=== PATIENT | male | born 1960 | race Caucasian/White ===

== ENCOUNTER 2022-07-25 05:06 | Day surgery (SDC) | payer OTHER ==
[2022-07-21 17:08] VITALS: BMI 25.0
[2022-07-25] MEDS ORDERED: SODIUM CHLORIDE 500 ML IV SCH (11:15)
[2022-07-25] MEDS ORDERED: FENTANYL CITRATE/PF 50 MCG/ML VIAL ONE (11:20)
[2022-07-25] MEDS ORDERED: FENTANYL CITRATE/PF 50 MCG/ML VIAL IVPUSH ONE ×2 (11:28→11:47)
[2022-07-25 14:24] VITALS: RESP 18
[2022-07-25 14:27] VITALS: BP 108/60; PULSE 50; TEMP 97.6
== END 2022-07-25 14:00 | disposition home or self-care (01) ==
LOC: JRADIR 05:06
PROVIDERS: ATTEND Internal Medicine Hematology & Oncology
DX: Z51.11 Encounter for antineoplastic chemotherapy (principal); C20 Malignant neoplasm of rectum; C78.7 Secondary malignant neoplasm of liver and intrahepatic bile duct
CPT/HCPCS: 36415; 36561; 77001-TC-FY; 80048; 80076; 83615; 83735; 85025; 85610; 85730; 96366; 96367; 96375; 96411; 96413; 96415; C1788; G0498; J2469; J9263

== ENCOUNTER 2022-07-25 07:39 | Day surgery (SDC) | payer OTHER ==
[2022-07-25 08:36] LABS: BASO % 0.8 % (0-2.0); EOS % 3.9 % (0-4.5); HEMATOCRIT 41.4 % (35.4-49); HEMOGLOBIN 13.6 GM/dL (11.7-16.9); LYMPH % 16.2 % (8-40); MCH 29.8 pg (25.7-33.7); MCHC 32.9 g/dl (32.0-35.9); MEAN CELL VOLUME 90.7 fl (80-96); MONO % 10.3 % (3.8-10.2); NEUT % 68.8 % (42.8-82.8); PLATELET COUNT 302 10^3/uL (134-434); RBC 4.56 M/mm3 (4.00-5.60); RDW 14.8 % (11.9-15.9); WHITE BLOOD COUNT 7.9 K/mm3 (4.0-10.0)
[2022-07-25 08:40] LABS: INR 1.05 (0.83-1.09); PROTHROMBIN TIME (PATIENT) 12.2 SEC (9.7-13.0)
[2022-07-25 08:43] LABS: ACTIVATED PTT 28.6 SECONDS (25.2-36.5)
[2022-07-25 08:51] LABS: POTASSIUM 4.2 mmol/L (3.5-5.1)
[2022-07-25 08:53] LABS: CALCIUM 9.5 mg/dL (8.5-10.1)
[2022-07-25 08:54] LABS: ALBUMIN 3.9 g/dl (3.4-5.0); BLOOD UREA NITROGEN 11.2 mg/dL (7-18); MAGNESIUM 2.1 mg/dL (1.8-2.4)
[2022-07-25 08:56] LABS: BILIRUBIN,DIRECT 0.1 mg/dL (0.0-0.2)
[2022-07-25 08:57] LABS: CREATININE 0.7 mg/dL (0.55-1.3)
[2022-07-25 08:58] LABS: BILIRUBIN,TOTAL 0.3 mg/dL (0.2-1)
[2022-07-25] MEDS ORDERED: SODIUM CHLORIDE 250 ML IV ONE (09:30)
[2022-07-25] MEDS ORDERED: DEXAMETHASONE SODIUM PHOSPHATE 10 MG in SODIUM CHLORIDE 50 ML IVPB ONE (10:00)
[2022-07-25] MEDS ORDERED: PALONOSETRON HCL 0.25 MG/5 ML VIAL IVPUSH ONE (10:00)
[2022-07-25] MEDS ORDERED: DEXTROSE 5% IVPB ONE (10:30)
[2022-07-25] MEDS ORDERED: WATER IVPB ONE (10:30)
[2022-07-25] MEDS ORDERED: LEUCOVORIN CALCIUM IVPB ONE (10:30)
[2022-07-25] MEDS ORDERED: FLUOROURACIL 2,500 MG/50 ML VIAL IVPUSH ONE (12:30)
[2022-07-25] MEDS ORDERED: FLUOROURACIL 4,550 MG in SODIUM CHLORIDE 1 ML CP ONE (13:00)
[2022-07-25 18:46] VITALS: BP 125/64; PULSE 41; RESP 20; TEMP 98
[2022-07-25] MEDS ORDERED: PORTA CATH FLUSH 10 ML IVPUSH PRN (18:46)
== END 2022-07-25 18:05 | disposition home or self-care (01) ==
LOC: J7W 07:39 → JONCCHEMO 07:39
PROVIDERS: ATTEND Internal Medicine Hematology & Oncology
DX: Z51.11 Encounter for antineoplastic chemotherapy (principal); C20 Malignant neoplasm of rectum; C78.7 Secondary malignant neoplasm of liver and intrahepatic bile duct
CPT/HCPCS: 36415; 80048; 80076; 83615; 83735; 85025; 85610; 85730; 96366; 96367; 96375; 96411; 96413; 96415; G0498; J2469; J9263

== ENCOUNTER 2022-07-27 12:27 | Day surgery (SDC) | payer OTHER ==
[~2022-07-27 12:27] MED LIST: D5-NS + 20 MEQ KCL - 10 MEQ/500 ML INFUS.BAG IV ONE; MAGNESIUM 1GM/D5W - 1 GM/100 ML IVPB IVPB ONE
[2022-07-27 17:02] VITALS: RESP 18; TEMP 98.4
[2022-07-27 17:14] VITALS: BP 104/64; PULSE 45
[2022-07-27] MEDS ORDERED: PORTA CATH FLUSH 10 ML IVPUSH PRN (17:14)
== END 2022-07-27 15:30 | disposition home or self-care (01) ==
LOC: JONCCHEMO 12:27 → J7W 12:28 → JONCCHEMO 15:30
PROVIDERS: ATTEND Internal Medicine Hematology & Oncology
PROC: 3E043GC Introduction of Other Therapeutic Substance into Central Vein, Percutaneous Approach (ICD-10-PCS; principal; 2022-07-27)
DX: C20 Malignant neoplasm of rectum (principal); C78.7 Secondary malignant neoplasm of liver and intrahepatic bile duct; Z76.89 Persons encountering health services in other specified circumstances
CPT/HCPCS: 96361; 96365

== ENCOUNTER 2022-08-07 10:36 | Day surgery (SDC) | payer OTHER ==
[~2022-08-07 10:36] MED LIST changes: -D5-NS + 20 MEQ KCL - 10 MEQ/500 ML INFUS.BAG IV ONE; +DEXAMETHASONE SODIUM PHOSPHATE 10 MG in SODIUM CHLORIDE 50 ML IVPB ONE; +DEXTROSE 5% IVPB ONE; +LEUCOVORIN CALCIUM IVPB ONE; -MAGNESIUM 1GM/D5W - 1 GM/100 ML IVPB IVPB ONE; +PALONOSETRON HCL 0.25 MG/5 ML VIAL IVPUSH ONE; +SODIUM CHLORIDE 250 ML IV ONE; +WATER IVPB ONE
[2022-08-07 11:07] LABS: BASO % 0.5 % (0-2.0); EOS % 5.3 % (0-4.5); HEMATOCRIT 38.2 % (35.4-49); HEMOGLOBIN 12.5 GM/dL (11.7-16.9); LYMPH % 28.4 % (8-40); MCH 29.7 pg (25.7-33.7); MCHC 32.6 g/dl (32.0-35.9); MEAN CELL VOLUME 91.1 fl (80-96); MEAN PLT VOLUME 8.9 fl (7.5-11.1); MONO % 9.2 % (3.8-10.2); NEUT % 56.6 % (42.8-82.8); PLATELET COUNT 218 10^3/uL (134-434); RDW 14.2 % (11.9-15.9); WHITE BLOOD COUNT 5.3 K/mm3 (4.0-10.0)
[2022-08-07 11:28] LABS: POTASSIUM 4.1 mmol/L (3.5-5.1)
[2022-08-07 11:30] LABS: BLOOD UREA NITROGEN 10.2 mg/dL (7-18); CALCIUM 9.5 mg/dL (8.5-10.1)
[2022-08-07 11:31] LABS: MAGNESIUM 2.2 mg/dL (1.8-2.4)
[2022-08-07 11:33] LABS: BILIRUBIN,DIRECT 0.1 mg/dL (0.0-0.2)
[2022-08-07 11:34] LABS: CREATININE 0.7 mg/dL (0.55-1.3)
[2022-08-07 11:35] LABS: BILIRUBIN,TOTAL 0.3 mg/dL (0.2-1); TOT PROT 6.8 g/dl (6.4-8.2)
[2022-08-07] MEDS ORDERED: FLUOROURACIL 2,500 MG/50 ML VIAL IVPUSH ONE (12:00)
[2022-08-07] MEDS ORDERED: FLUOROURACIL 4,550 MG in SODIUM CHLORIDE 1 ML CP ONE (12:15)
[2022-08-07 17:16] VITALS: TEMP 97.7
[2022-08-07 17:31] VITALS: BP 138/72; PULSE 46; RESP 20
[2022-08-07] MEDS ORDERED: PORTA CATH FLUSH 10 ML IVPUSH PRN (17:32)
== END 2022-08-07 16:30 | disposition home or self-care (01) ==
LOC: J7W 10:36 → JONCCHEMO 10:36
PROVIDERS: ATTEND Internal Medicine Hematology & Oncology
DX: Z51.11 Encounter for antineoplastic chemotherapy (principal); C20 Malignant neoplasm of rectum; C78.7 Secondary malignant neoplasm of liver and intrahepatic bile duct
CPT/HCPCS: 36415; 80048; 80076; 83735; 85025; 96366; 96367; 96375; 96411; 96413; 96415; G0498; J2469; J9263

== ENCOUNTER 2022-08-09 12:57 | Day surgery (SDC) | payer OTHER ==
[~2022-08-09 12:57] MED LIST changes: +D5-NS + 40 MEQ KCL - 20 MEQ/500 ML INFUS.BAG IV ONE; -DEXAMETHASONE SODIUM PHOSPHATE 10 MG in SODIUM CHLORIDE 50 ML IVPB ONE; -DEXTROSE 5% IVPB ONE; -LEUCOVORIN CALCIUM IVPB ONE; +MAGNESIUM 1GM/D5W - 1 GM/100 ML IVPB IVPB ONE; -PALONOSETRON HCL 0.25 MG/5 ML VIAL IVPUSH ONE; -SODIUM CHLORIDE 250 ML IV ONE; -WATER IVPB ONE
[2022-08-09 18:17] VITALS: BP 88/70; PULSE 101; RESP 20; TEMP 98.2
[2022-08-09] MEDS ORDERED: PORTA CATH FLUSH 10 ML IVPUSH PRN (18:17)
== END 2022-08-09 16:00 | disposition home or self-care (01) ==
LOC: JONCNONCHE 12:57
PROVIDERS: ATTEND Internal Medicine Hematology & Oncology
PROC: 3E043GC Introduction of Other Therapeutic Substance into Central Vein, Percutaneous Approach (ICD-10-PCS; principal; 2022-08-09)
DX: C20 Malignant neoplasm of rectum (principal); C78.7 Secondary malignant neoplasm of liver and intrahepatic bile duct; Z76.89 Persons encountering health services in other specified circumstances
CPT/HCPCS: 96365; 96368

== ENCOUNTER 2022-09-05 08:57 | Day surgery (SDC) | payer OTHER ==
[2022-09-05 09:28] LABS: BASO % 0.9 % (0-2.0); EOS % 3.1 % (0-4.5); HEMATOCRIT 39.8 % (35.4-49); HEMOGLOBIN 13.2 GM/dL (11.7-16.9); LYMPH % 23.2 % (8-40); MCH 29.8 pg (25.7-33.7); MCHC 33.1 g/dl (32.0-35.9); MEAN PLT VOLUME 8.5 fl (7.5-11.1); MONO % 10.2 % (3.8-10.2); NEUT % 62.6 % (42.8-82.8); PLATELET COUNT 230 10^3/uL (134-434); RBC 4.42 M/mm3 (4.00-5.60); RDW 15.9 % (11.9-15.9); WHITE BLOOD COUNT 6.6 K/mm3 (4.0-10.0)
[2022-09-05] MEDS ORDERED: SODIUM CHLORIDE 250 ML IV ONE (09:30)
[2022-09-05 09:50] LABS: POTASSIUM 4.1 mmol/L (3.5-5.1)
[2022-09-05 09:52] LABS: CALCIUM 8.7 mg/dL (8.5-10.1)
[2022-09-05 09:53] LABS: ALBUMIN 3.7 g/dl (3.4-5.0); BLOOD UREA NITROGEN 12.3 mg/dL (7-18)
[2022-09-05 09:55] LABS: BILIRUBIN,DIRECT 0.1 mg/dL (0.0-0.2)
[2022-09-05 09:56] LABS: CREATININE 0.7 mg/dL (0.55-1.3)
[2022-09-05 09:57] LABS: BILIRUBIN,TOTAL 0.4 mg/dL (0.2-1); TOT PROT 6.8 g/dl (6.4-8.2)
[2022-09-05] MEDS ORDERED: PALONOSETRON HCL 0.25 MG/5 ML VIAL IVPUSH ONE (10:00)
[2022-09-05] MEDS ORDERED: DEXAMETHASONE SODIUM PHOSPHATE 10 MG in SODIUM CHLORIDE 50 ML IVPB ONE (10:00)
[2022-09-05] MEDS ORDERED: LEUCOVORIN CALCIUM IVPB ONE (10:30)
[2022-09-05] MEDS ORDERED: DEXTROSE 5% IVPB ONE (10:30)
[2022-09-05] MEDS ORDERED: WATER IVPB ONE (10:30)
[2022-09-05] MEDS ORDERED: FLUOROURACIL 2,500 MG/50 ML VIAL IVPUSH ONE (12:30)
[2022-09-05] MEDS ORDERED: SODIUM CHLORIDE CP ONE (12:45)
[2022-09-05] MEDS ORDERED: FLUOROURACIL CP ONE (12:45)
[2022-09-05 15:40] VITALS: BP 104/71; PULSE 46; RESP 20; TEMP 98
== END 2022-09-05 14:30 | disposition home or self-care (01) ==
LOC: JONCCHEMO 08:57 → J7W 08:59 → JONCCHEMO 14:30
PROVIDERS: ATTEND Internal Medicine Hematology & Oncology
DX: Z51.11 Encounter for antineoplastic chemotherapy (principal); C20 Malignant neoplasm of rectum; C78.7 Secondary malignant neoplasm of liver and intrahepatic bile duct
CPT/HCPCS: 36415; 80048; 80076; 83735; 85025; 96366; 96367; 96411; 96413; 96415; G0498; J2469; J9263

== ENCOUNTER 2022-09-07 13:49 | Day surgery (SDC) | payer OTHER ==
[~2022-09-07 13:49] MED LIST changes: +D5-NS + 20 MEQ KCL - 10 MEQ/500 ML INFUS.BAG IV ONE; -D5-NS + 40 MEQ KCL - 20 MEQ/500 ML INFUS.BAG IV ONE
[2022-09-07] MEDS ORDERED: DEXTROSE 5%-NORMAL SALINE 1,000 ML IV ONE (16:45)
[2022-09-07 17:39] VITALS: RESP 20; TEMP 98
[2022-09-07] MEDS ORDERED: PORTA CATH FLUSH 10 ML IVPUSH PRN (17:39)
[2022-09-07 17:43] VITALS: BP 95/61; PULSE 48
== END 2022-09-07 17:46 | disposition home or self-care (01) ==
LOC: JONCCHEMO 13:49 → J7W 13:50 → JONCCHEMO 17:46
PROVIDERS: ATTEND Internal Medicine Hematology & Oncology
PROC: 3E043GC Introduction of Other Therapeutic Substance into Central Vein, Percutaneous Approach (ICD-10-PCS; principal; 2022-09-07)
DX: C20 Malignant neoplasm of rectum (principal); C78.7 Secondary malignant neoplasm of liver and intrahepatic bile duct; Z76.89 Persons encountering health services in other specified circumstances
CPT/HCPCS: 96361; 96365

== ENCOUNTER 2022-09-19 09:09 | Day surgery (SDC) | payer OTHER ==
[2022-09-19] MEDS ORDERED: SODIUM CHLORIDE 250 ML IV ONE (09:30)
[2022-09-19] MEDS ORDERED: DEXAMETHASONE SODIUM PHOSPHATE 10 MG in SODIUM CHLORIDE 50 ML IVPB ONE (10:00)
[2022-09-19] MEDS ORDERED: PALONOSETRON HCL 0.25 MG/5 ML VIAL IVPUSH ONE (10:00)
[2022-09-19] MEDS ORDERED: WATER IVPB ONE (10:30)
[2022-09-19] MEDS ORDERED: LEUCOVORIN CALCIUM IVPB ONE (10:30)
[2022-09-19] MEDS ORDERED: DEXTROSE 5% IVPB ONE (10:30)
[2022-09-19 10:44] LABS: BASO % 0.7 % (0-2.0); EOS % 3.8 % (0-4.5); HEMATOCRIT 39.2 % (35.4-49); HEMOGLOBIN 13.3 GM/dL (11.7-16.9); LYMPH % 22.1 % (8-40); MCH 30.2 pg (25.7-33.7); MCHC 34.1 g/dl (32.0-35.9); MEAN CELL VOLUME 88.8 fl (80-96); MEAN PLT VOLUME 7.9 fl (7.5-11.1); MONO % 12.8 % (3.8-10.2); NEUT % 60.6 % (42.8-82.8); PLATELET COUNT 193 10^3/uL (134-434); RBC 4.41 M/mm3 (4.00-5.60); RDW 16.5 % (11.9-15.9); WHITE BLOOD COUNT 6.1 K/mm3 (4.0-10.0)
[2022-09-19 11:37] LABS: POTASSIUM 4.2 mmol/L (3.5-5.1)
[2022-09-19 11:40] LABS: CALCIUM 9.2 mg/dL (8.5-10.1)
[2022-09-19 11:41] LABS: ALBUMIN 3.9 g/dl (3.4-5.0); MAGNESIUM 2.3 mg/dL (1.8-2.4)
[2022-09-19 11:43] LABS: BILIRUBIN,DIRECT 0.1 mg/dL (0.0-0.2); CREATININE 0.7 mg/dL (0.55-1.3)
[2022-09-19 11:45] LABS: BILIRUBIN,TOTAL 0.5 mg/dL (0.2-1); TOT PROT 6.8 g/dl (6.4-8.2)
[2022-09-19] MEDS ORDERED: FLUOROURACIL CP ONE (12:30)
[2022-09-19] MEDS ORDERED: SODIUM CHLORIDE CP ONE (12:30)
[2022-09-19] MEDS ORDERED: FLUOROURACIL 1,000 MG/20 ML VIAL IVPUSH ONE (12:30)
[2022-09-19 17:11] VITALS: BP 115/62; PULSE 45; RESP 18; TEMP 98.3
== END 2022-09-19 15:00 | disposition home or self-care (01) ==
LOC: JONCCHEMO 09:09 → J7W 09:10 → JONCCHEMO 15:00
PROVIDERS: ATTEND Internal Medicine Hematology & Oncology
DX: Z51.11 Encounter for antineoplastic chemotherapy (principal); C20 Malignant neoplasm of rectum; C78.7 Secondary malignant neoplasm of liver and intrahepatic bile duct
CPT/HCPCS: 36415; 80048; 80076; 83735; 85025; 96368; 96375; 96411; 96413; 96415; G0498; J2469; J9263

== ENCOUNTER 2022-09-21 12:25 | Day surgery (SDC) | payer OTHER ==
[2022-09-21 17:07] VITALS: BP 102/60; PULSE 44; RESP 20; TEMP 98
[2022-09-21] MEDS ORDERED: PORTA CATH FLUSH 10 ML IVPUSH PRN (17:07)
== END 2022-09-21 15:10 | disposition home or self-care (01) ==
LOC: JONCCHEMO 12:25 → J7W 12:25 → JONCCHEMO 15:10
PROVIDERS: ATTEND Internal Medicine Hematology & Oncology
PROC: 3E043GC Introduction of Other Therapeutic Substance into Central Vein, Percutaneous Approach (ICD-10-PCS; principal; 2022-09-21)
DX: C20 Malignant neoplasm of rectum (principal); C78.7 Secondary malignant neoplasm of liver and intrahepatic bile duct; Z76.89 Persons encountering health services in other specified circumstances
CPT/HCPCS: 96365

== ENCOUNTER 2022-10-03 08:28 | Day surgery (SDC) | payer OTHER ==
[2022-10-03 08:39] LABS: BASO % 0.9 % (0-2.0); EOS % 4.8 % (0-4.5); HEMATOCRIT 40.9 % (35.4-49); HEMOGLOBIN 13.5 GM/dL (11.7-16.9); LYMPH % 32.9 % (8-40); MCH 30.3 pg (25.7-33.7); MCHC 33.1 g/dl (32.0-35.9); MEAN CELL VOLUME 91.6 fl (80-96); MEAN PLT VOLUME 8.3 fl (7.5-11.1); MONO % 11.3 % (3.8-10.2); NEUT % 50.1 % (42.8-82.8); PLATELET COUNT 217 10^3/uL (134-434); RBC 4.46 M/mm3 (4.00-5.60); RDW 17.3 % (11.9-15.9); WHITE BLOOD COUNT 5.2 K/mm3 (4.0-10.0)
[2022-10-03] MEDS ORDERED: SODIUM CHLORIDE 250 ML IV ONE (09:00)
[2022-10-03 09:12] LABS: POTASSIUM 4.2 mmol/L (3.5-5.1)
[2022-10-03 09:15] LABS: ALBUMIN 3.7 g/dl (3.4-5.0); BLOOD UREA NITROGEN 11.4 mg/dL (7-18); CALCIUM 9.2 mg/dL (8.5-10.1); MAGNESIUM 1.9 mg/dL (1.8-2.4)
[2022-10-03 09:18] LABS: BILIRUBIN,DIRECT 0.1 mg/dL (0.0-0.2); CREATININE 0.8 mg/dL (0.55-1.3)
[2022-10-03 09:19] LABS: BILIRUBIN,TOTAL 0.4 mg/dL (0.2-1)
[2022-10-03] MEDS ORDERED: PALONOSETRON HCL 0.25 MG/5 ML VIAL IVPUSH ONE (09:30)
[2022-10-03] MEDS ORDERED: DEXAMETHASONE SODIUM PHOSPHATE 10 MG in SODIUM CHLORIDE 50 ML IVPB ONE (09:30)
[2022-10-03] MEDS ORDERED: WATER IVPB ONE (10:00)
[2022-10-03] MEDS ORDERED: DEXTROSE 5% IVPB ONE (10:00)
[2022-10-03] MEDS ORDERED: LEUCOVORIN CALCIUM IVPB ONE (10:00)
[2022-10-03] MEDS ORDERED: FLUOROURACIL 1,000 MG/20 ML VIAL IVPUSH ONE (12:00)
[2022-10-03] MEDS ORDERED: FLUOROURACIL CP ONE (12:15)
[2022-10-03] MEDS ORDERED: SODIUM CHLORIDE CP ONE (12:15)
[2022-10-03 17:12] VITALS: BP 96/62; PULSE 46; RESP 18; TEMP 97.7
[2022-10-03] MEDS ORDERED: PORTA CATH FLUSH 10 ML IVPUSH PRN (17:12)
== END 2022-10-03 14:55 | disposition home or self-care (01) ==
LOC: J7W 08:28 → JONCCHEMO 08:28
PROVIDERS: ATTEND Internal Medicine Hematology & Oncology
DX: Z51.11 Encounter for antineoplastic chemotherapy (principal); C20 Malignant neoplasm of rectum; C78.7 Secondary malignant neoplasm of liver and intrahepatic bile duct
CPT/HCPCS: 36415; 80048; 80076; 83735; 85025; 96366; 96367; 96375; 96411; 96413; G0498; J2469; J9263

== ENCOUNTER 2022-10-05 12:13 | Day surgery (SDC) | payer OTHER ==
[2022-10-05 16:49] VITALS: BP 94/52; PULSE 46; RESP 18; TEMP 98.2
[2022-10-05] MEDS ORDERED: PORTA CATH FLUSH 10 ML IVPUSH PRN (16:49)
== END 2022-10-05 15:25 | disposition home or self-care (01) ==
LOC: JONCCHEMO 12:13
PROVIDERS: ATTEND Internal Medicine Hematology & Oncology
PROC: 3E043GC Introduction of Other Therapeutic Substance into Central Vein, Percutaneous Approach (ICD-10-PCS; principal; 2022-10-05)
DX: C20 Malignant neoplasm of rectum (principal); C78.7 Secondary malignant neoplasm of liver and intrahepatic bile duct; Z76.89 Persons encountering health services in other specified circumstances
CPT/HCPCS: 96361; 96365

== ENCOUNTER 2022-10-17 09:25 | Day surgery (SDC) | payer OTHER ==
[~2022-10-17 09:25] MED LIST changes: -D5-NS + 20 MEQ KCL - 10 MEQ/500 ML INFUS.BAG IV ONE; -MAGNESIUM 1GM/D5W - 1 GM/100 ML IVPB IVPB ONE; +SODIUM CHLORIDE 250 ML IV ONE
[2022-10-17] MEDS ORDERED: DEXAMETHASONE SODIUM PHOSPHATE 10 MG in SODIUM CHLORIDE 50 ML IVPB ONE (09:30)
[2022-10-17] MEDS ORDERED: PALONOSETRON HCL 0.25 MG/5 ML VIAL IVPUSH ONE (09:30)
[2022-10-17] MEDS ORDERED: LEUCOVORIN CALCIUM IVPB ONE (10:00)
[2022-10-17] MEDS ORDERED: DEXTROSE 5% IVPB ONE (10:00)
[2022-10-17] MEDS ORDERED: WATER IVPB ONE (10:00)
[2022-10-17 10:07] LABS: BASO % 1.2 % (0-2.0); HEMATOCRIT 38.9 % (35.4-49); HEMOGLOBIN 13.2 GM/dL (11.7-16.9); LYMPH % 32.6 % (8-40); MCH 30.5 pg (25.7-33.7); MCHC 33.9 g/dl (32.0-35.9); MEAN CELL VOLUME 89.9 fl (80-96); MONO % 15.7 % (3.8-10.2); NEUT % 47.5 % (42.8-82.8); PLATELET COUNT 160 10^3/uL (134-434); RBC 4.32 M/mm3 (4.00-5.60); RDW 18.4 % (11.9-15.9); WHITE BLOOD COUNT 4.2 K/mm3 (4.0-10.0)
[2022-10-17 10:23] LABS: POTASSIUM 4.1 mmol/L (3.5-5.1)
[2022-10-17 10:26] LABS: ALBUMIN 3.7 g/dl (3.4-5.0); BLOOD UREA NITROGEN 10.9 mg/dL (7-18); CALCIUM 8.9 mg/dL (8.5-10.1); MAGNESIUM 1.8 mg/dL (1.8-2.4)
[2022-10-17 10:29] LABS: BILIRUBIN,DIRECT 0.1 mg/dL (0.0-0.2)
[2022-10-17 10:30] LABS: CREATININE 0.8 mg/dL (0.55-1.3)
[2022-10-17 10:31] LABS: BILIRUBIN,TOTAL 0.4 mg/dL (0.2-1)
[2022-10-17] MEDS ORDERED: FLUOROURACIL 1,000 MG/20 ML VIAL IVPUSH ONE (12:00)
[2022-10-17] MEDS ORDERED: FLUOROURACIL CP ONE (12:15)
[2022-10-17] MEDS ORDERED: SODIUM CHLORIDE CP ONE (12:15)
[2022-10-17] MEDS ORDERED: PORTA CATH FLUSH 10 ML IVPUSH PRN (17:53)
[2022-10-17 17:54] VITALS: BP 144/78; PULSE 43; RESP 18; TEMP 97.6
== END 2022-10-17 15:20 | disposition home or self-care (01) ==
LOC: JONCCHEMO 09:25 → J7W 09:26 → JONCCHEMO 15:20
PROVIDERS: ATTEND Internal Medicine Hematology & Oncology
PROC: 3E04305 Introduction of Other Antineoplastic into Central Vein, Percutaneous Approach (ICD-10-PCS; principal; 2022-10-17)
PROC: 3E04305 Introduction of Other Antineoplastic into Central Vein, Percutaneous Approach (ICD-10-PCS; 2022-10-17)
PROC: 3E0437Z Introduction of Electrolytic and Water Balance Substance into Central Vein, Percutaneous Approach (ICD-10-PCS; 2022-10-17)
PROC: 3E043GC Introduction of Other Therapeutic Substance into Central Vein, Percutaneous Approach (ICD-10-PCS; 2022-10-17)
PROC: 3E04305 Introduction of Other Antineoplastic into Central Vein, Percutaneous Approach (ICD-10-PCS; 2022-10-17)
DX: Z51.11 Encounter for antineoplastic chemotherapy (principal); C20 Malignant neoplasm of rectum; C78.7 Secondary malignant neoplasm of liver and intrahepatic bile duct
CPT/HCPCS: 36415; 80048; 80076; 83735; 85025; 96368; 96375; 96413; 96415; G0498; J2469; J9263

== ENCOUNTER 2022-10-19 12:38 | Day surgery (SDC) | payer OTHER ==
[~2022-10-19 12:38] MED LIST changes: +D5-NS + 20 MEQ KCL - 10 MEQ/500 ML INFUS.BAG IV ONE; +MAGNESIUM 1GM/D5W - 1 GM/100 ML IVPB IVPB ONE; -SODIUM CHLORIDE 250 ML IV ONE
[2022-10-19 14:46] VITALS: RESP 20; TEMP 98.3
[2022-10-19] MEDS ORDERED: PORTA CATH FLUSH 10 ML IVPUSH PRN ×2 (14:46→15:29)
[2022-10-19 15:30] VITALS: BP 109/61; PULSE 46
== END 2022-10-19 15:34 | disposition home or self-care (01) ==
LOC: J7W 12:38 → JONCCHEMO 12:38
PROVIDERS: ATTEND Internal Medicine Hematology & Oncology
PROC: 3E033GC Introduction of Other Therapeutic Substance into Peripheral Vein, Percutaneous Approach (ICD-10-PCS; principal; 2022-10-19)
PROC: 3E0337Z Introduction of Electrolytic and Water Balance Substance into Peripheral Vein, Percutaneous Approach (ICD-10-PCS; 2022-10-19)
DX: C20 Malignant neoplasm of rectum (principal); C78.7 Secondary malignant neoplasm of liver and intrahepatic bile duct
CPT/HCPCS: 96361; 96365

== ENCOUNTER 2022-11-14 09:00 | Day surgery (SDC) | payer OTHER ==
[2022-11-14 09:46] LABS: BASO % 1.1 % (0-2.0); EOS % 3.3 % (0-4.5); HEMATOCRIT 39.8 % (35.4-49); HEMOGLOBIN 13.3 GM/dL (11.7-16.9); LYMPH % 27.8 % (8-40); MCH 31.4 pg (25.7-33.7); MCHC 33.3 g/dl (32.0-35.9); MEAN CELL VOLUME 94.1 fl (80-96); MONO % 14.2 % (3.8-10.2); NEUT % 53.6 % (42.8-82.8); PLATELET COUNT 169 10^3/uL (134-434); RBC 4.23 M/mm3 (4.00-5.60); RDW 19.3 % (11.9-15.9); WHITE BLOOD COUNT 5.8 K/mm3 (4.0-10.0)
[2022-11-14] MEDS ORDERED: PALONOSETRON HCL 0.25 MG/5 ML VIAL IVPUSH ONE (10:00)
[2022-11-14] MEDS ORDERED: SODIUM CHLORIDE 250 ML IV ONE (10:00)
[2022-11-14] MEDS ORDERED: DEXAMETHASONE SODIUM PHOSPHATE 10 MG in SODIUM CHLORIDE 50 ML IVPB ONE (10:00)
[2022-11-14 10:06] LABS: POTASSIUM 3.9 mmol/L (3.5-5.1)
[2022-11-14 10:08] LABS: CALCIUM 8.7 mg/dL (8.5-10.1)
[2022-11-14 10:09] LABS: ALBUMIN 3.6 g/dl (3.4-5.0); BLOOD UREA NITROGEN 11.5 mg/dL (7-18); MAGNESIUM 1.9 mg/dL (1.8-2.4)
[2022-11-14 10:11] LABS: BILIRUBIN,DIRECT 0.1 mg/dL (0.0-0.2); CREATININE 0.8 mg/dL (0.55-1.3)
[2022-11-14 10:13] LABS: BILIRUBIN,TOTAL 0.4 mg/dL (0.2-1); TOT PROT 6.8 g/dl (6.4-8.2)
[2022-11-14] MEDS ORDERED: WATER IVPB ONE (10:30)
[2022-11-14] MEDS ORDERED: DEXTROSE 5% IVPB ONE (10:30)
[2022-11-14] MEDS ORDERED: LEUCOVORIN IVPB ONE (10:30)
[2022-11-14] MEDS ORDERED: FLUOROURACIL CP ONE (12:30)
[2022-11-14] MEDS ORDERED: SODIUM CHLORIDE CP ONE (12:30)
[2022-11-14] MEDS ORDERED: FLUOROURACIL 2,500 MG/50 ML VIAL IVPUSH ONE (12:30)
[2022-11-14 16:22] VITALS: BP 125/68; PULSE 45; RESP 18; TEMP 97.9
== END 2022-11-14 15:30 | disposition home or self-care (01) ==
LOC: JONCCHEMO 09:00 → J7W 09:01 → JONCCHEMO 15:30
PROVIDERS: ATTEND Internal Medicine Hematology & Oncology
DX: Z51.11 Encounter for antineoplastic chemotherapy (principal); C20 Malignant neoplasm of rectum; C78.7 Secondary malignant neoplasm of liver and intrahepatic bile duct
CPT/HCPCS: 36415; 80048; 80076; 83735; 85025; 96368; 96413; 96415; G0498; J2469; J9263

== ENCOUNTER 2022-11-16 14:37 | Day surgery (SDC) | payer OTHER ==
[2022-11-16 18:15] VITALS: BP 102/68; PULSE 45; RESP 20; TEMP 98.3
[2022-11-16] MEDS ORDERED: PORTA CATH FLUSH 10 ML IVPUSH PRN (18:18)
== END 2022-11-16 14:45 | disposition home or self-care (01) ==
LOC: J7W 14:37 → JONCCHEMO 14:37
PROVIDERS: ATTEND Internal Medicine Hematology & Oncology
PROC: 3E043GC Introduction of Other Therapeutic Substance into Central Vein, Percutaneous Approach (ICD-10-PCS; principal; 2022-11-16)
DX: C20 Malignant neoplasm of rectum (principal); C78.7 Secondary malignant neoplasm of liver and intrahepatic bile duct
CPT/HCPCS: 96365

== ENCOUNTER 2022-11-28 09:00 | Day surgery (SDC) | payer OTHER ==
[~2022-11-28 09:00] MED LIST changes: -D5-NS + 20 MEQ KCL - 10 MEQ/500 ML INFUS.BAG IV ONE; -MAGNESIUM 1GM/D5W - 1 GM/100 ML IVPB IVPB ONE; +SODIUM CHLORIDE 250 ML IV ONE
[2022-11-28] MEDS ORDERED: PALONOSETRON HCL 0.25 MG/5 ML VIAL IVPUSH ONE (09:30)
[2022-11-28] MEDS ORDERED: DEXAMETHASONE SODIUM PHOSPHATE 10 MG in SODIUM CHLORIDE 50 ML IVPB ONE (09:30)
[2022-11-28 09:40] LABS: EOS % 4.1 % (0-4.5); HEMATOCRIT 40.4 % (35.4-49); LYMPH % 28.8 % (8-40); MCH 32.3 pg (25.7-33.7); MCHC 34.6 g/dl (32.0-35.9); MEAN CELL VOLUME 93.2 fl (80-96); MEAN PLT VOLUME 8.5 fl (7.5-11.1); MONO % 18.7 % (3.8-10.2); NEUT % 47.4 % (42.8-82.8); PLATELET COUNT 178 10^3/uL (134-434); RBC 4.33 M/mm3 (4.00-5.60); RDW 19.9 % (11.9-15.9); WHITE BLOOD COUNT 5.6 K/mm3 (4.0-10.0)
[2022-11-28] MEDS ORDERED: DEXTROSE 5% IVPB ONE (10:00)
[2022-11-28] MEDS ORDERED: OXALIplatin 180 MG in DEXTROSE 5%-WATER - 500 ML IV ONE (10:00)
[2022-11-28] MEDS ORDERED: WATER IVPB ONE (10:00)
[2022-11-28] MEDS ORDERED: LEUCOVORIN IVPB ONE (10:00)
[2022-11-28 10:02] LABS: BLOOD UREA NITROGEN 8.2 mg/dL (7-18); CALCIUM 9.2 mg/dL (8.5-10.1); MAGNESIUM 2.1 mg/dL (1.8-2.4)
[2022-11-28 10:05] LABS: BILIRUBIN,DIRECT 0.1 mg/dL (0.0-0.2); CREATININE 0.9 mg/dL (0.55-1.3)
[2022-11-28 10:07] LABS: BILIRUBIN,TOTAL 0.5 mg/dL (0.2-1); TOT PROT 7.1 g/dl (6.4-8.2)
[2022-11-28] MEDS ORDERED: FLUOROURACIL 2,500 MG/50 ML VIAL IVPUSH ONE (12:00)
[2022-11-28] MEDS ORDERED: FLUOROURACIL 5,050 MG in SODIUM CHLORIDE 0.2 ML CP ONE (12:15)
[2022-11-28 16:12] VITALS: BP 134/65; PULSE 46; RESP 20; TEMP 98
== END 2022-11-28 16:00 | disposition home or self-care (01) ==
LOC: JONCCHEMO 09:00 → J7W 09:02 → JONCCHEMO 16:00
PROVIDERS: ATTEND Internal Medicine Hematology & Oncology
DX: Z51.11 Encounter for antineoplastic chemotherapy (principal); C20 Malignant neoplasm of rectum; C78.7 Secondary malignant neoplasm of liver and intrahepatic bile duct
CPT/HCPCS: 36415; 80048; 80076; 83735; 85025; 96366; 96367; 96375; 96413; G0498; J2469; J9263

== ENCOUNTER 2022-11-30 13:28 | Day surgery (SDC) | payer OTHER ==
[~2022-11-30 13:28] MED LIST changes: +D5-NS + 20 MEQ KCL - 10 MEQ/500 ML INFUS.BAG IV ONE; +MAGNESIUM 1GM/D5W - 1 GM/100 ML IVPB IVPB ONE; +MAGNESIUM SULF 50% (8.12 MEQ/2 ML-1 GM VIAL) IVPB ONE; -SODIUM CHLORIDE 250 ML IV ONE
[2022-11-30 16:03] VITALS: BP 108/61; PULSE 54; RESP 20; TEMP 98.3
== END 2022-11-30 15:50 | disposition home or self-care (01) ==
LOC: JONCCHEMO 13:28 → J7W 13:28 → JONCCHEMO 15:50
PROVIDERS: ATTEND Internal Medicine Hematology & Oncology
PROC: 3E033GC Introduction of Other Therapeutic Substance into Peripheral Vein, Percutaneous Approach (ICD-10-PCS; principal; 2022-11-30)
DX: C20 Malignant neoplasm of rectum (principal); C78.7 Secondary malignant neoplasm of liver and intrahepatic bile duct; Z76.89 Persons encountering health services in other specified circumstances
CPT/HCPCS: 96365

== ENCOUNTER 2022-12-12 09:40 | Day surgery (SDC) | payer OTHER ==
[~2022-12-12 09:40] MED LIST changes: -D5-NS + 20 MEQ KCL - 10 MEQ/500 ML INFUS.BAG IV ONE; +DEXAMETHASONE SODIUM PHOSPHATE 10 MG in SODIUM CHLORIDE 50 ML IVPB ONE; -MAGNESIUM 1GM/D5W - 1 GM/100 ML IVPB IVPB ONE; -MAGNESIUM SULF 50% (8.12 MEQ/2 ML-1 GM VIAL) IVPB ONE; +PALONOSETRON HCL 0.25 MG/5 ML VIAL IVPUSH ONE; +SODIUM CHLORIDE 250 ML IV ONE
[2022-12-12] MEDS ORDERED: OXALIplatin 180 MG in DEXTROSE 5%-WATER - 500 ML IV ONE (10:00)
[2022-12-12] MEDS ORDERED: LEUCOVORIN IVPB ONE (10:00)
[2022-12-12] MEDS ORDERED: WATER IVPB ONE (10:00)
[2022-12-12] MEDS ORDERED: DEXTROSE 5% IVPB ONE (10:00)
[2022-12-12 10:50] LABS: BASO % 1.1 % (0-2.0); HEMATOCRIT 41.2 % (35.4-49); HEMOGLOBIN 13.6 GM/dL (11.7-16.9); LYMPH % 25.7 % (8-40); MCH 31.4 pg (25.7-33.7); MCHC 33.1 g/dl (32.0-35.9); MEAN PLT VOLUME 8.5 fl (7.5-11.1); MONO % 16.8 % (3.8-10.2); NEUT % 52.4 % (42.8-82.8); PLATELET COUNT 188 10^3/uL (134-434); RBC 4.33 M/mm3 (4.00-5.60); RDW 19.3 % (11.9-15.9); WHITE BLOOD COUNT 5.1 K/mm3 (4.0-10.0)
[2022-12-12 10:57] LABS: POTASSIUM 4.2 mmol/L (3.5-5.1)
[2022-12-12 10:59] LABS: CALCIUM 9.2 mg/dL (8.5-10.1)
[2022-12-12 11:00] LABS: ALBUMIN 3.7 g/dl (3.4-5.0); BLOOD UREA NITROGEN 11.7 mg/dL (7-18); MAGNESIUM 2.1 mg/dL (1.8-2.4)
[2022-12-12 11:03] LABS: CREATININE 0.8 mg/dL (0.55-1.3)
[2022-12-12 11:05] LABS: BILIRUBIN,TOTAL 0.5 mg/dL (0.2-1)
[2022-12-12 11:09] LABS: BILIRUBIN,DIRECT 0.1 mg/dL (0.0-0.2)
[2022-12-12] MEDS ORDERED: FLUOROURACIL 2,500 MG/50 ML VIAL IVPUSH ONE (12:00)
[2022-12-12] MEDS ORDERED: FLUOROURACIL 5,075 MG in SODIUM CHLORIDE 4.3 ML CP ONE (12:15)
[2022-12-12] MEDS ORDERED: FAMOTIDINE 20 MG/50 ML IVPB 20 MG/50 ML MG IVPB ONE (13:58)
[2022-12-12] MEDS ORDERED: SODIUM CHLORIDE 0.9% 500 ML INFUS.BAG IV ONE (14:00)
[2022-12-12] MEDS ORDERED: DEXAMETHASONE SOD PHOSPHATE 10 MG/1 ML VIAL IVPB ONE (14:38)
[2022-12-12 17:36] VITALS: RESP 20; TEMP 98.2
[2022-12-12] MEDS ORDERED: PORTA CATH FLUSH 10 ML IVPUSH PRN (17:36)
[2022-12-13 09:23] VITALS: BP 120/81; PULSE 53
== END 2022-12-12 18:25 | disposition home or self-care (01) ==
LOC: JONCCHEMO 09:40 → J7W 09:41 → JONCCHEMO 18:25
PROVIDERS: ATTEND Internal Medicine Hematology & Oncology
DX: Z51.11 Encounter for antineoplastic chemotherapy (principal); C20 Malignant neoplasm of rectum; C78.7 Secondary malignant neoplasm of liver and intrahepatic bile duct
CPT/HCPCS: 36415; 80048; 80076; 83036; 83735; 85025; 96368; 96375; 96413; 96415; G0498; J1100; J2469; J9263

== ENCOUNTER 2022-12-14 13:56 | Day surgery (SDC) | payer OTHER ==
[~2022-12-14 13:56] MED LIST changes: +D5-NS + 20 MEQ KCL - 10 MEQ/500 ML INFUS.BAG IV ONE; -DEXAMETHASONE SODIUM PHOSPHATE 10 MG in SODIUM CHLORIDE 50 ML IVPB ONE; +MAGNESIUM 1GM/D5W - 1 GM/100 ML IVPB IVPB ONE; -PALONOSETRON HCL 0.25 MG/5 ML VIAL IVPUSH ONE; -SODIUM CHLORIDE 250 ML IV ONE
[2022-12-14] MEDS ORDERED: PORTA CATH FLUSH 10 ML IVPUSH PRN (14:13)
[2022-12-14 14:49] VITALS: RESP 18; TEMP 98.6
[2022-12-14 16:29] VITALS: BP 99/58
[2022-12-14 17:06] VITALS: PULSE 53
== END 2022-12-14 16:25 | disposition home or self-care (01) ==
LOC: JONCCHEMO 13:56 → J7W 13:57 → JONCCHEMO 16:25
PROVIDERS: ATTEND Internal Medicine Hematology & Oncology
PROC: 3E043GC Introduction of Other Therapeutic Substance into Central Vein, Percutaneous Approach (ICD-10-PCS; principal; 2022-12-14)
DX: C20 Malignant neoplasm of rectum (principal); C78.7 Secondary malignant neoplasm of liver and intrahepatic bile duct; Z76.89 Persons encountering health services in other specified circumstances
CPT/HCPCS: 96365

== ENCOUNTER 2022-12-25 09:23 | Day surgery (SDC) | payer OTHER ==
[2022-12-25] MEDS ORDERED: SODIUM CHLORIDE 250 ML IV ONE (09:30)
[2022-12-25 09:50] LABS: BASO % 1.1 % (0-2.0); EOS % 2.5 % (0-4.5); HEMATOCRIT 40.7 % (35.4-49); HEMOGLOBIN 13.9 GM/dL (11.7-16.9); LYMPH % 14.5 % (8-40); MCH 32.5 pg (25.7-33.7); MCHC 34.2 g/dl (32.0-35.9); MEAN CELL VOLUME 95.2 fl (80-96); MEAN PLT VOLUME 7.9 fl (7.5-11.1); MONO % 4.6 % (3.8-10.2); NEUT % 77.3 % (42.8-82.8); PLATELET COUNT 171 10^3/uL (134-434); RBC 4.28 M/mm3 (4.00-5.60); RDW 18.4 % (11.9-15.9); WHITE BLOOD COUNT 3.9 K/mm3 (4.0-10.0)
[2022-12-25] MEDS ORDERED: PALONOSETRON HCL 0.25 MG/5 ML VIAL IVPUSH ONE (10:00)
[2022-12-25] MEDS ORDERED: FAMOTIDINE 20 MG/50 ML IVPB 20 MG/50 ML MG IVPB ONE (10:00)
[2022-12-25] MEDS ORDERED: DEXAMETHASONE SODIUM PHOSPHATE 12 MG, DIPHENHYDRAMINE 25 MG in SODIUM CHLORIDE 100 ML IVPB ONE (10:00)
[2022-12-25 10:07] LABS: POTASSIUM 4.2 mmol/L (3.5-5.1)
[2022-12-25 10:10] LABS: ALBUMIN 3.8 g/dl (3.4-5.0)
[2022-12-25 10:13] LABS: BILIRUBIN,DIRECT 0.1 mg/dL (0.0-0.2)
[2022-12-25 10:14] LABS: BILIRUBIN,TOTAL 0.5 mg/dL (0.2-1); TOT PROT 7.2 g/dl (6.4-8.2)
[2022-12-25] MEDS ORDERED: OXALIplatin 180 MG in DEXTROSE 5%-WATER - 500 ML IV ONE (10:30)
[2022-12-25] MEDS ORDERED: LEUCOVORIN INJECTION - 844 MG in DEXTROSE 5%-WATER - 250 ML IVPB ONE (10:30)
[2022-12-25] MEDS ORDERED: INSULIN (NOVOLOG) ASPART 100 UNITS/ML 10ML VIAL SQ ONE (11:36)
[2022-12-25] MEDS ORDERED: FLUOROURACIL 2,500 MG/50 ML VIAL IVPUSH ONE (12:30)
[2022-12-25] MEDS ORDERED: FLUOROURACIL 5,075 MG in SODIUM CHLORIDE 36.5 ML CP ONE (12:30)
[2022-12-25 15:32] VITALS: RESP 18; TEMP 97.8
[2022-12-25] MEDS ORDERED: PORTA CATH FLUSH 10 ML IVPUSH PRN ×2 (15:32→16:11)
[2022-12-25 16:11] VITALS: BP 142/78; PULSE 65
== END 2022-12-25 16:00 | disposition home or self-care (01) ==
LOC: JONCCHEMO 09:23 → J7W 09:24 → JONCCHEMO 16:00
PROVIDERS: ATTEND Internal Medicine Hematology & Oncology
DX: Z51.11 Encounter for antineoplastic chemotherapy (principal); C20 Malignant neoplasm of rectum; C78.7 Secondary malignant neoplasm of liver and intrahepatic bile duct
CPT/HCPCS: 36415; 80048; 80076; 83735; 85025; 96366; 96367; 96375; 96411; 96413; G0498; J2469; J9263

== ENCOUNTER 2022-12-27 12:30 | Day surgery (SDC) | payer OTHER ==
[2022-12-27 16:59] VITALS: BP 115/81; PULSE 96; RESP 20
[2022-12-27] MEDS ORDERED: PORTA CATH FLUSH 10 ML IVPUSH PRN (17:12)
[2022-12-27 17:19] VITALS: TEMP 98.2
== END 2022-12-27 15:00 | disposition home or self-care (01) ==
LOC: JONCCHEMO 12:30 → J7W 12:30 → JONCCHEMO 15:00
PROVIDERS: ATTEND Internal Medicine Hematology & Oncology
PROC: 3E043GC Introduction of Other Therapeutic Substance into Central Vein, Percutaneous Approach (ICD-10-PCS; principal; 2022-12-27)
DX: C20 Malignant neoplasm of rectum (principal); C78.7 Secondary malignant neoplasm of liver and intrahepatic bile duct; Z76.89 Persons encountering health services in other specified circumstances
CPT/HCPCS: 96365

== ENCOUNTER 2023-10-23 09:57 | Day surgery (SDC) | payer OTHER ==
[2023-10-23 10:37] LABS: BASO % 0.6 % (0-2.0); EOS % 2.9 % (0-4.5); HEMATOCRIT 41.1 % (35.4-49); HEMOGLOBIN 14.2 GM/dL (11.7-16.9); LYMPH % 10.7 % (8-40); MCHC 34.4 g/dl (32.0-35.9); MEAN CELL VOLUME 98.7 fl (80-96); MEAN PLT VOLUME 8.1 fl (7.5-11.1); MONO % 9.5 % (3.8-10.2); NEUT % 76.3 % (42.8-82.8); PLATELET COUNT 269 10^3/uL (134-434); RBC 4.17 M/mm3 (4.00-5.60); RDW 13.8 % (11.9-15.9); WHITE BLOOD COUNT 6.9 K/mm3 (4.0-10.0)
[2023-10-23] MEDS: SODIUM CHLORIDE 250 ML IV ONE (10:55)
[2023-10-23 10:57] LABS: POTASSIUM 4.1 mmol/L (3.5-5.1)
[2023-10-23 11:00] LABS: BLOOD UREA NITROGEN 12.9 mg/dL (7-18); CALCIUM 9.3 mg/dL (8.5-10.1)
[2023-10-23 11:01] LABS: ALBUMIN 3.9 g/dl (3.4-5.0); MAGNESIUM 2.1 mg/dL (1.8-2.4)
[2023-10-23 11:03] LABS: BILIRUBIN,DIRECT 0.2 mg/dL (0.0-0.2); CREATININE 0.7 mg/dL (0.55-1.3)
[2023-10-23 11:05] LABS: BILIRUBIN,TOTAL 0.6 mg/dL (0.2-1); TOT PROT 6.8 g/dl (6.4-8.2)
[2023-10-23] MEDS: DEXAMETHASONE INJECTION 10 MG in SODIUM CHLORIDE 50 ML IVPB ONE (11:19)
[2023-10-23] MEDS: PALONOSETRON HCL 0.25 MG/5 ML VIAL IVPUSH ONE (11:41)
[2023-10-23] MEDS: SODIUM CHLORIDE IVPB ONE (11:45)
[2023-10-23] MEDS: BEVACIZUMAB AWWB IVPB ONE (11:45)
[2023-10-23] MEDS: ATROPINE SO4 0.4 MG/1 ML VIAL IVPUSH ONE (13:45)
[2023-10-23] MEDS: WATER IVPB ONE (13:50)
[2023-10-23] MEDS: LEUCOVORIN IVPB ONE (13:50)
[2023-10-23] MEDS: DEXTROSE 5% IVPB ONE (13:50)
[2023-10-23] MEDS: IRINOTECAN HCL 380 MG in DEXTROSE 5%-WATER - 500 ML IVPB ONE (13:54)
[2023-10-23] MEDS: FLUOROURACIL 500 MG/10 ML VIAL IVPUSH ONE (16:24)
[2023-10-23] MEDS: FLUOROURACIL 5,025 MG in SODIUM CHLORIDE 37.5 ML CP ONE (16:26)
[2023-10-23 17:19] VITALS: BP 148/68; PULSE 46; RESP 18; TEMP 98.2
[2023-10-23] MEDS ORDERED: PORTA CATH FLUSH 10 ML IVPUSH PRN (17:19)
== END 2023-10-23 16:45 | disposition home or self-care (01) ==
LOC: JONCCHEMO 09:57 → J7W 09:59 → JONCCHEMO 16:45
PROVIDERS: ATTEND Internal Medicine Hematology & Oncology
PROC: 3E04305 Introduction of Other Antineoplastic into Central Vein, Percutaneous Approach (ICD-10-PCS; principal; 2023-10-23)
PROC: 3E0437Z Introduction of Electrolytic and Water Balance Substance into Central Vein, Percutaneous Approach (ICD-10-PCS; 2023-10-23)
DX: Z51.11 Encounter for antineoplastic chemotherapy (principal); C20 Malignant neoplasm of rectum; C78.7 Secondary malignant neoplasm of liver and intrahepatic bile duct
CPT/HCPCS: 36415; 80048; 80076; 83735; 84156; 85025; 96368; 96375; 96413; 96417; G0498; J1100; J2469; J9190; J9206; Q5107

== ENCOUNTER 2023-10-25 13:10 | Day surgery (SDC) | payer OTHER ==
[2023-10-25] MEDS: PORTA CATH FLUSH 10 ML IVPUSH PRN (14:40)
[2023-10-25 18:17] VITALS: BP 106/58; PULSE 42; RESP 18; TEMP 98.7
== END 2023-10-25 14:50 | disposition home or self-care (01) ==
LOC: JONCCHEMO 13:10 → J7W 13:39 → JONCCHEMO 14:50
PROVIDERS: ATTEND Internal Medicine Hematology & Oncology
DX: Z53.8 Procedure and treatment not carried out for other reasons (principal)
CPT/HCPCS: 96365

== ENCOUNTER 2023-11-06 10:13 | Day surgery (SDC) | payer OTHER ==
[2023-11-06 11:21] LABS: BASO % 0.7 % (0-2.0); EOS % 6.3 % (0-4.5); HEMATOCRIT 40.9 % (35.4-49); HEMOGLOBIN 14.1 GM/dL (11.7-16.9); LYMPH % 17.8 % (8-40); MCH 33.6 pg (25.7-33.7); MCHC 34.5 g/dl (32.0-35.9); MEAN CELL VOLUME 97.3 fl (80-96); MEAN PLT VOLUME 8.2 fl (7.5-11.1); MONO % 15.1 % (3.8-10.2); NEUT % 60.1 % (42.8-82.8); PLATELET COUNT 304 10^3/uL (134-434); RBC 4.21 M/mm3 (4.00-5.60); RDW 13.6 % (11.9-15.9); WHITE BLOOD COUNT 3.7 K/mm3 (4.0-10.0)
[2023-11-06] MEDS: SODIUM CHLORIDE 250 ML IV ONE (11:43)
[2023-11-06 11:46] LABS: CHLORIDE 105 mmol/L (98-107); POTASSIUM 4.2 mmol/L (3.5-5.1); SODIUM 138 mmol/L (136-145)
[2023-11-06 11:59] LABS: ALBUMIN 3.8 g/dl (3.4-5.0); BLOOD UREA NITROGEN 11.9 mg/dL (7-18); CALCIUM 9.5 mg/dL (8.5-10.1)
[2023-11-06 12:00] LABS: ANION GAP 5 mmol/L (4-13); CO2 28 mmol/L (21-32); GLUCOSE,RANDOM 98 mg/dL (74-106); MAGNESIUM 2.2 mg/dL (1.8-2.4)
[2023-11-06 12:02] LABS: BILIRUBIN,DIRECT 0.1 mg/dL (0.0-0.2); SGPT/ALT 41 U/L (13-61)
[2023-11-06 12:03] LABS: SGOT/AST 27 U/L (15-37)
[2023-11-06 12:05] LABS: ALK PHOS 102 U/L (45-117); BILIRUBIN,TOTAL 0.4 mg/dL (0.2-1); CREATININE 0.8 mg/dL (0.55-1.3)
[2023-11-06] MEDS: DEXAMETHASONE INJECTION 10 MG in SODIUM CHLORIDE 50 ML IVPB ONE (12:22)
[2023-11-06] MEDS: PALONOSETRON HCL 0.25 MG/5 ML VIAL IVPUSH ONE (13:07)
[2023-11-06] MEDS: SODIUM CHLORIDE IVPB ONE (13:12)
[2023-11-06] MEDS: BEVACIZUMAB AWWB IVPB ONE (13:12)
[2023-11-06] MEDS: ATROPINE SO4 0.4 MG/1 ML VIAL IVPUSH ONE (14:18)
[2023-11-06] MEDS: WATER IVPB ONE (14:21)
[2023-11-06] MEDS: LEUCOVORIN IVPB ONE (14:21)
[2023-11-06] MEDS: DEXTROSE 5% IVPB ONE (14:21)
[2023-11-06] MEDS: IRINOTECAN HCL 380 MG in DEXTROSE 5%-WATER - 500 ML IVPB ONE (15:05)
[2023-11-06] MEDS: FLUOROURACIL 500 MG/10 ML VIAL IVPUSH ONE (16:52)
[2023-11-06] MEDS: FLUOROURACIL 5,025 MG in SODIUM CHLORIDE 0.7 ML CP ONE (16:59)
[2023-11-06 18:16] VITALS: RESP 18; TEMP 97.9
[2023-11-06 18:39] VITALS: BP 141/91; PULSE 81
[2023-11-06] MEDS ORDERED: PORTA CATH FLUSH 10 ML IVPUSH PRN (18:39)
== END 2023-11-06 17:10 | disposition home or self-care (01) ==
LOC: JONCCHEMO 10:13 → J7W 10:14 → JONCCHEMO 17:10
PROVIDERS: ATTEND Internal Medicine Hematology & Oncology
DX: Z51.11 Encounter for antineoplastic chemotherapy (principal); C20 Malignant neoplasm of rectum; C78.7 Secondary malignant neoplasm of liver and intrahepatic bile duct
CPT/HCPCS: 36415; 80048; 80076; 83735; 84156; 85025; 96368; 96375; 96411; 96413; 96415; 96417; G0498; J1100; J9190; J9206; Q5107

== ENCOUNTER 2023-11-08 14:00 | Day surgery (SDC) | payer OTHER ==
[2023-11-08] MEDS: PORTA CATH FLUSH 10 ML IVPUSH PRN (13:40)
[2023-11-08 18:06] VITALS: BP 105/54; PULSE 39; RESP 20; TEMP 98.3
== END 2023-11-08 14:50 | disposition home or self-care (01) ==
LOC: J7W 14:00 → JONCCHEMO 14:00
PROVIDERS: ATTEND Internal Medicine Hematology & Oncology
PROC: 3C1ZX8Z Irrigation of Indwelling Device using Irrigating Substance, External Approach (ICD-10-PCS; principal; 2023-11-08)
DX: Z45.2 Encounter for adjustment and management of vascular access device (principal)
CPT/HCPCS: 96523

== ENCOUNTER 2023-11-20 11:01 | Day surgery (SDC) | payer OTHER ==
[2023-11-20 11:47] LABS: BASO % 0.9 % (0-2.0); EOS % 5.4 % (0-4.5); HEMOGLOBIN 13.9 GM/dL (11.7-16.9); LYMPH % 20.5 % (8-40); MCH 32.4 pg (25.7-33.7); MCHC 33.1 g/dl (32.0-35.9); MEAN CELL VOLUME 97.9 fl (80-96); MEAN PLT VOLUME 7.9 fl (7.5-11.1); MONO % 15.2 % (3.8-10.2); PLATELET COUNT 281 10^3/uL (134-434); RBC 4.29 M/mm3 (4.00-5.60); RDW 14.1 % (11.9-15.9); WHITE BLOOD COUNT 3.5 K/mm3 (4.0-10.0)
[2023-11-20] MEDS: SODIUM CHLORIDE 250 ML IV ONE (11:54)
[2023-11-20 12:10] LABS: POTASSIUM 4.7 mmol/L (3.5-5.1)
[2023-11-20 12:12] LABS: ALBUMIN 3.9 g/dl (3.4-5.0); BLOOD UREA NITROGEN 14.2 mg/dL (7-18); CALCIUM 9.6 mg/dL (8.5-10.1); MAGNESIUM 2.3 mg/dL (1.8-2.4)
[2023-11-20 12:15] LABS: BILIRUBIN,DIRECT 0.2 mg/dL (0.0-0.2); CREATININE 0.8 mg/dL (0.55-1.3)
[2023-11-20 12:16] LABS: BILIRUBIN,TOTAL 0.7 mg/dL (0.2-1); TOT PROT 6.9 g/dl (6.4-8.2)
[2023-11-20] MEDS: PALONOSETRON HCL 0.25 MG/5 ML VIAL IVPUSH ONE (13:31)
[2023-11-20] MEDS: DEXAMETHASONE INJECTION 10 MG in SODIUM CHLORIDE 50 ML IVPB ONE (13:32)
[2023-11-20] MEDS: BEVACIZUMAB AWWB IVPB ONE (13:47)
[2023-11-20] MEDS: SODIUM CHLORIDE IVPB ONE (13:47)
[2023-11-20] MEDS: ATROPINE SO4 0.4 MG/1 ML VIAL IVPUSH ONE (14:26)
[2023-11-20] MEDS: LEUCOVORIN IVPB ONE (14:34)
[2023-11-20] MEDS: WATER IVPB ONE (14:34)
[2023-11-20] MEDS: IRINOTECAN HCL 380 MG in DEXTROSE 5%-WATER - 500 ML IVPB ONE (14:34)
[2023-11-20] MEDS: DEXTROSE 5% IVPB ONE (14:34)
[2023-11-20] MEDS: FLUOROURACIL 500 MG/10 ML VIAL IVPUSH ONE (16:40)
[2023-11-20] MEDS: PORTA CATH FLUSH 10 ML IVPUSH PRN (16:40)
[2023-11-20] MEDS: FLUOROURACIL 5,025 MG in SODIUM CHLORIDE 37.5 ML CP ONE (16:41)
[2023-11-20 18:08] VITALS: RESP 18; TEMP 97.5
[2023-11-20 18:15] VITALS: BP 150/73; PULSE 47
== END 2023-11-20 17:00 | disposition home or self-care (01) ==
LOC: JONCCHEMO 11:01
PROVIDERS: ATTEND Internal Medicine Hematology & Oncology
DX: Z51.11 Encounter for antineoplastic chemotherapy (principal); C20 Malignant neoplasm of rectum; C78.7 Secondary malignant neoplasm of liver and intrahepatic bile duct
CPT/HCPCS: 36415; 80048; 80076; 83735; 84156; 85025; 96368; 96375; 96411; 96413; 96415; 96417; G0498; J1100; J9190; J9206; Q5107

== ENCOUNTER 2023-12-04 10:09 | Day surgery (SDC) | payer OTHER ==
[2023-12-04 10:51] LABS: BASO % 0.9 % (0-2.0); EOS % 3.4 % (0-4.5); HEMATOCRIT 40.2 % (35.4-49); HEMOGLOBIN 13.9 GM/dL (11.7-16.9); MCH 33.3 pg (25.7-33.7); MCHC 34.6 g/dl (32.0-35.9); MEAN CELL VOLUME 96.3 fl (80-96); MEAN PLT VOLUME 7.3 fl (7.5-11.1); MONO % 12.9 % (3.8-10.2); NEUT % 65.8 % (42.8-82.8); PLATELET COUNT 252 10^3/uL (134-434); RBC 4.18 M/mm3 (4.00-5.60); RDW 14.5 % (11.9-15.9); WHITE BLOOD COUNT 3.5 K/mm3 (4.0-10.0)
[2023-12-04 11:22] LABS: POTASSIUM 4.3 mmol/L (3.5-5.1)
[2023-12-04 11:23] LABS: CALCIUM 8.9 mg/dL (8.5-10.1)
[2023-12-04 11:24] LABS: BLOOD UREA NITROGEN 16.9 mg/dL (7-18); MAGNESIUM 2.2 mg/dL (1.8-2.4)
[2023-12-04 11:26] LABS: ALBUMIN 3.9 g/dl (3.4-5.0)
[2023-12-04 11:27] LABS: CREATININE 0.8 mg/dL (0.55-1.3)
[2023-12-04 11:28] LABS: BILIRUBIN,DIRECT 0.3 mg/dL (0.0-0.2)
[2023-12-04 11:30] LABS: BILIRUBIN,TOTAL 0.8 mg/dL (0.2-1); TOT PROT 6.7 g/dl (6.4-8.2)
[2023-12-04] MEDS: SODIUM CHLORIDE 250 ML IV ONE (11:50)
[2023-12-04] MEDS: PALONOSETRON HCL 0.25 MG/5 ML VIAL IVPUSH ONE (11:51)
[2023-12-04] MEDS: DEXAMETHASONE INJECTION 10 MG in SODIUM CHLORIDE 50 ML IVPB ONE (11:58)
[2023-12-04] MEDS: SODIUM CHLORIDE IVPB ONE (12:27)
[2023-12-04] MEDS: BEVACIZUMAB AWWB IVPB ONE (12:27)
[2023-12-04] MEDS: ATROPINE SO4 0.4 MG/1 ML VIAL IVPUSH ONE (13:15)
[2023-12-04] MEDS: WATER IVPB ONE (13:19)
[2023-12-04] MEDS: LEUCOVORIN IVPB ONE (13:19)
[2023-12-04] MEDS: IRINOTECAN HCL 370 MG in DEXTROSE 5%-WATER - 500 ML IVPB ONE (13:19)
[2023-12-04] MEDS: DEXTROSE 5% IVPB ONE (13:19)
[2023-12-04] MEDS: FLUOROURACIL 500 MG/10 ML VIAL IVPUSH ONE (15:49)
[2023-12-04] MEDS: FLUOROURACIL CP ONE (15:49)
[2023-12-04] MEDS: SODIUM CHLORIDE CP ONE (15:49)
[2023-12-04 17:32] VITALS: PULSE 48; TEMP 98.1
[2023-12-04 17:43] VITALS: BP 141/71; RESP 20
[2023-12-04] MEDS ORDERED: PORTA CATH FLUSH 10 ML IVPUSH PRN (17:43)
== END 2023-12-04 16:10 | disposition home or self-care (01) ==
LOC: JONCCHEMO 10:09 → J7W 10:13 → JONCCHEMO 16:10
PROVIDERS: ATTEND Internal Medicine Hematology & Oncology
DX: Z51.11 Encounter for antineoplastic chemotherapy (principal); C20 Malignant neoplasm of rectum; C78.7 Secondary malignant neoplasm of liver and intrahepatic bile duct
CPT/HCPCS: 36415; 80048; 80076; 83735; 85025; 86335; 96368; 96375; 96411; 96413; 96417; G0498; J1100; J9190; J9206; Q5107

== ENCOUNTER 2023-12-06 13:44 | Day surgery (SDC) | payer OTHER ==
[2023-12-06] MEDS: PORTA CATH FLUSH 10 ML IVPUSH PRN (14:40)
[2023-12-06 15:38] VITALS: BP 135/69; PULSE 39; RESP 20; TEMP 98
== END 2023-12-06 14:10 | disposition home or self-care (01) ==
LOC: JONCCHEMO 13:44 → J7W 13:44 → JONCCHEMO 14:10
PROVIDERS: ATTEND Internal Medicine Hematology & Oncology
DX: Z53.8 Procedure and treatment not carried out for other reasons (principal)

== ENCOUNTER 2023-12-18 10:51 | Day surgery (SDC) | payer OTHER ==
[2023-12-18 10:52] LABS: BASO % 2.5 % (0-2.0); EOS % 4.3 % (0-4.5); HEMATOCRIT 40.8 % (35.4-49); HEMOGLOBIN 13.9 GM/dL (11.7-16.9); LYMPH % 18.7 % (8-40); MCH 33.6 pg (25.7-33.7); MCHC 34.1 g/dl (32.0-35.9); MEAN CELL VOLUME 98.3 fl (80-96); MEAN PLT VOLUME 7.4 fl (7.5-11.1); MONO % 14.8 % (3.8-10.2); NEUT % 59.7 % (42.8-82.8); PLATELET COUNT 265 10^3/uL (134-434); RBC 4.15 M/mm3 (4.00-5.60); RDW 15.6 % (11.9-15.9); WHITE BLOOD COUNT 3.9 K/mm3 (4.0-10.0)
[2023-12-18 11:07] LABS: POTASSIUM 4.5 mmol/L (3.5-5.1)
[2023-12-18 11:16] LABS: ALBUMIN 3.7 g/dl (3.4-5.0); BLOOD UREA NITROGEN 10.6 mg/dL (7-18); CALCIUM 9.7 mg/dL (8.5-10.1); MAGNESIUM 2.2 mg/dL (1.8-2.4)
[2023-12-18 11:18] LABS: BILIRUBIN,DIRECT 0.2 mg/dL (0.0-0.2); CREATININE 0.8 mg/dL (0.55-1.3)
[2023-12-18 11:20] LABS: BILIRUBIN,TOTAL 0.7 mg/dL (0.2-1); TOT PROT 6.8 g/dl (6.4-8.2)
[2023-12-18] MEDS: SODIUM CHLORIDE 250 ML IV ONE (11:27)
[2023-12-18] MEDS: DEXAMETHASONE INJECTION 10 MG in SODIUM CHLORIDE 50 ML IVPB ONE (12:14)
[2023-12-18] MEDS: PALONOSETRON HCL 0.25 MG/5 ML VIAL IVPUSH ONE (12:17)
[2023-12-18] MEDS: BEVACIZUMAB AWWB IVPB ONE (13:22)
[2023-12-18] MEDS: SODIUM CHLORIDE IVPB ONE (13:22)
[2023-12-18] MEDS: ATROPINE SO4 0.4 MG/1 ML VIAL IVPUSH ONE (13:58)
[2023-12-18] MEDS: WATER IVPB ONE (13:59)
[2023-12-18] MEDS: DEXTROSE 5% IVPB ONE (13:59)
[2023-12-18] MEDS: LEUCOVORIN IVPB ONE (13:59)
[2023-12-18] MEDS: IRINOTECAN HCL 380 MG in DEXTROSE 5%-WATER - 500 ML IVPB ONE (14:01)
[2023-12-18] MEDS: FLUOROURACIL 500 MG/10 ML VIAL IVPUSH ONE (16:31)
[2023-12-18] MEDS: FLUOROURACIL 5,050 MG in SODIUM CHLORIDE 37 ML CP ONE (16:32)
[2023-12-18 17:35] VITALS: BP 122/73; PULSE 41; RESP 20; TEMP 97.7
[2023-12-18] MEDS ORDERED: PORTA CATH FLUSH 10 ML IVPUSH PRN (17:35)
[2023-12-18 18:48] LABS: PH,URINE 5.5 (5.0-8.0); URINE APPEARANCE CLEAR; URINE BILIRUBIN NEGATIVE (NEGATIVE); URINE COLOR YELLOW; URINE GLUCOSE (UA) NEGATIVE (NEGATIVE); URINE KETONE NEGATIVE (NEGATIVE); URINE LEUK ESTERASE NEGATIVE (NEGATIVE); URINE NITRITE NEGATIVE (NEGATIVE); URINE PROTEIN NEGATIVE (NEGATIVE); URINE UROBILINOGEN 0.2 mg/dL (0.2-1.0)
== END 2023-12-18 16:50 | disposition home or self-care (01) ==
LOC: JONCCHEMO 10:51
PROVIDERS: ATTEND Internal Medicine Hematology & Oncology
DX: Z51.11 Encounter for antineoplastic chemotherapy (principal); C20 Malignant neoplasm of rectum; C78.7 Secondary malignant neoplasm of liver and intrahepatic bile duct
CPT/HCPCS: 36415; 80048; 80076; 81003; 83735; 85025; 86335; 96368; 96375; 96411; 96413; 96417; G0498; J1100; J9190; J9206; Q5107

== ENCOUNTER 2023-12-31 10:14 | Day surgery (SDC) | payer OTHER ==
[2023-12-31 11:13] LABS: PH,URINE 5.5 (5.0-8.0); URINE APPEARANCE CLEAR; URINE BILIRUBIN NEGATIVE (NEGATIVE); URINE COLOR YELLOW; URINE GLUCOSE (UA) NEGATIVE (NEGATIVE); URINE KETONE NEGATIVE (NEGATIVE); URINE LEUK ESTERASE NEGATIVE (NEGATIVE); URINE NITRITE NEGATIVE (NEGATIVE); URINE PROTEIN TRACE (NEGATIVE); URINE UROBILINOGEN 0.2 mg/dL (0.2-1.0)
[2023-12-31] MEDS: SODIUM CHLORIDE 250 ML IV ONE (11:21)
[2023-12-31 11:26] LABS: POTASSIUM 4.2 mmol/L (3.5-5.1)
[2023-12-31 11:28] LABS: ALBUMIN 3.8 g/dl (3.4-5.0); BLOOD UREA NITROGEN 15.4 mg/dL (7-18); CALCIUM 9.4 mg/dL (8.5-10.1); MAGNESIUM 2.1 mg/dL (1.8-2.4)
[2023-12-31 11:31] LABS: BILIRUBIN,DIRECT 0.2 mg/dL (0.0-0.2); CREATININE 0.9 mg/dL (0.55-1.3)
[2023-12-31 11:33] LABS: BILIRUBIN,TOTAL 0.7 mg/dL (0.2-1)
[2023-12-31 11:43] LABS: BASO % 1.2 % (0-2.0); EOS % 4.4 % (0-4.5); HEMATOCRIT 41.3 % (35.4-49); HEMOGLOBIN 13.9 GM/dL (11.7-16.9); LYMPH % 24.9 % (8-40); MCH 33.4 pg (25.7-33.7); MCHC 33.8 g/dl (32.0-35.9); MEAN CELL VOLUME 98.8 fl (80-96); MEAN PLT VOLUME 7.8 fl (7.5-11.1); MONO % 11.4 % (3.8-10.2); NEUT % 58.1 % (42.8-82.8); PLATELET COUNT 249 10^3/uL (134-434); RBC 4.18 M/mm3 (4.00-5.60); WHITE BLOOD COUNT 3.4 K/mm3 (4.0-10.0)
[2023-12-31] MEDS: PALONOSETRON HCL 0.25 MG/5 ML VIAL IVPUSH ONE (12:50)
[2023-12-31] MEDS: DEXAMETHASONE INJECTION 10 MG in SODIUM CHLORIDE 50 ML IVPB ONE (12:52)
[2023-12-31] MEDS: BEVACIZUMAB AWWB IVPB ONE (13:15)
[2023-12-31] MEDS: SODIUM CHLORIDE IVPB ONE (13:15)
[2023-12-31] MEDS: ATROPINE SO4 0.4 MG/1 ML VIAL IVPUSH ONE (13:52)
[2023-12-31] MEDS: LEUCOVORIN IVPB ONE (13:58)
[2023-12-31] MEDS: WATER IVPB ONE (13:58)
[2023-12-31] MEDS: DEXTROSE 5% IVPB ONE (13:58)
[2023-12-31] MEDS: IRINOTECAN HCL 380 MG in DEXTROSE 5%-WATER - 500 ML IVPB ONE (13:59)
[2023-12-31] MEDS: FLUOROURACIL 5,050 MG in SODIUM CHLORIDE 37 ML CP ONE (16:11)
[2023-12-31] MEDS: FLUOROURACIL 500 MG/10 ML VIAL IVPUSH ONE (16:11)
[2023-12-31 17:53] VITALS: TEMP 97.3
[2023-12-31 18:10] VITALS: BP 138/78; PULSE 50; RESP 18
[2023-12-31] MEDS ORDERED: PORTA CATH FLUSH 10 ML IVPUSH PRN (18:10)
== END 2023-12-31 16:30 | disposition home or self-care (01) ==
LOC: JONCCHEMO 10:14
PROVIDERS: ATTEND Internal Medicine Hematology & Oncology
PROC: 3E04305 Introduction of Other Antineoplastic into Central Vein, Percutaneous Approach (ICD-10-PCS; principal; 2023-12-31)
PROC: 3E04305 Introduction of Other Antineoplastic into Central Vein, Percutaneous Approach (ICD-10-PCS; 2023-12-31)
PROC: 3E043GC Introduction of Other Therapeutic Substance into Central Vein, Percutaneous Approach (ICD-10-PCS; 2023-12-31)
DX: Z51.11 Encounter for antineoplastic chemotherapy (principal); C20 Malignant neoplasm of rectum; C78.7 Secondary malignant neoplasm of liver and intrahepatic bile duct
CPT/HCPCS: 36415; 80048; 80076; 81003; 83735; 84156; 85025; 96374; 96375; 96413; 96415; G0498; J1100; J9190; J9206; Q5107

== ENCOUNTER 2024-01-02 13:50 | Day surgery (SDC) | payer OTHER ==
[2024-01-02 19:22] VITALS: BP 134/71; PULSE 45; RESP 20; TEMP 97.3
[2024-01-02] MEDS ORDERED: PORTA CATH FLUSH 10 ML IVPUSH PRN (19:22)
== END 2024-01-02 14:30 | disposition home or self-care (01) ==
LOC: JONCCHEMO 13:50 → J7W 13:50 → JONCCHEMO 14:30
PROVIDERS: ATTEND Internal Medicine Hematology & Oncology
DX: Z53.8 Procedure and treatment not carried out for other reasons (principal)

== ENCOUNTER 2024-01-15 10:33 | Day surgery (SDC) | payer OTHER ==
[2024-01-15 11:33] LABS: BASO % 1.3 % (0-2.0); EOS % 5.2 % (0-4.5); HEMOGLOBIN 13.9 GM/dL (11.7-16.9); LYMPH % 25.8 % (8-40); MCH 33.9 pg (25.7-33.7); MEAN CELL VOLUME 99.9 fl (80-96); MEAN PLT VOLUME 8.1 fl (7.5-11.1); MONO % 19.2 % (3.8-10.2); NEUT % 48.5 % (42.8-82.8); PLATELET COUNT 280 10^3/uL (134-434); RDW 18.3 % (11.9-15.9); WHITE BLOOD COUNT 2.7 K/mm3 (4.0-10.0)
[2024-01-15] MEDS: SODIUM CHLORIDE 250 ML IV ONE (11:46)
[2024-01-15 11:52] LABS: CHLORIDE 108 mmol/L (98-107); POTASSIUM 4.5 mmol/L (3.5-5.1); SODIUM 138 mmol/L (136-145)
[2024-01-15 11:54] LABS: ALBUMIN 3.7 g/dl (3.4-5.0); ANION GAP 6 mmol/L (4-13); BLOOD UREA NITROGEN 16.1 mg/dL (7-18); CALCIUM 9.4 mg/dL (8.5-10.1); CO2 25 mmol/L (21-32); GLUCOSE,RANDOM 121 mg/dL (74-106); MAGNESIUM 2.2 mg/dL (1.8-2.4)
[2024-01-15 11:57] LABS: BILIRUBIN,DIRECT 0.2 mg/dL (0.0-0.2)
[2024-01-15 11:58] LABS: BILIRUBIN,TOTAL 0.6 mg/dL (0.2-1); CREATININE 0.9 mg/dL (0.55-1.3); SGOT/AST 21 U/L (15-37); SGPT/ALT 43 U/L (13-61); TOT PROT 6.9 g/dl (6.4-8.2)
[2024-01-15 12:00] LABS: ALK PHOS 83 U/L (45-117)
[2024-01-15] MEDS: PALONOSETRON HCL 0.25 MG/5 ML VIAL IVPUSH ONE (12:15)
[2024-01-15] MEDS: DEXAMETHASONE INJECTION 10 MG in SODIUM CHLORIDE 50 ML IVPB ONE (12:18)
[2024-01-15] MEDS: BEVACIZUMAB AWWB IVPB ONE (13:21)
[2024-01-15] MEDS: SODIUM CHLORIDE IVPB ONE (13:21)
[2024-01-15] MEDS: ATROPINE SO4 0.4 MG/1 ML VIAL IVPUSH ONE (14:07)
[2024-01-15] MEDS: LEUCOVORIN CALCIUM 840 MG in DEXTROSE 5%-WATER - 166 ML IVPB ONE (14:07)
[2024-01-15] MEDS: IRINOTECAN HCL 380 MG in DEXTROSE 5%-WATER - 500 ML IVPB ONE (14:08)
[2024-01-15] MEDS: FLUOROURACIL 500 MG/10 ML VIAL IVPUSH ONE (16:39)
[2024-01-15] MEDS: FLUOROURACIL 5,050 MG in SODIUM CHLORIDE 0.2 ML CP ONE (16:40)
[2024-01-15] MEDS: PORTA CATH FLUSH 10 ML IVPUSH PRN (16:40)
[2024-01-15 17:31] VITALS: RESP 20; TEMP 97.5
[2024-01-15 17:47] VITALS: BP 141/80; PULSE 53
== END 2024-01-15 16:45 | disposition home or self-care (01) ==
LOC: JONCNONCHE 10:33
PROVIDERS: ATTEND Internal Medicine Hematology & Oncology
DX: Z51.11 Encounter for antineoplastic chemotherapy (principal); C20 Malignant neoplasm of rectum; C78.7 Secondary malignant neoplasm of liver and intrahepatic bile duct
CPT/HCPCS: 36415; 80048; 80076; 83735; 84156; 85025; 96368; 96375; 96411; 96413; 96417; G0498; J1100; J9190; J9206; Q5107

== ENCOUNTER 2024-02-05 10:11 | Day surgery (SDC) | payer OTHER ==
[2024-02-05 10:38] LABS: BASO % 0.6 % (0-2.0); EOS % 3.6 % (0-4.5); HEMATOCRIT 41.1 % (35.4-49); MCH 34.9 pg (25.7-33.7); MCHC 34.1 g/dl (32.0-35.9); MEAN CELL VOLUME 102.5 fl (80-96); MEAN PLT VOLUME 7.7 fl (7.5-11.1); MONO % 19.3 % (3.8-10.2); NEUT % 50.5 % (42.8-82.8); PLATELET COUNT 274 10^3/uL (134-434); RBC 4.01 M/mm3 (4.00-5.60); RDW 18.7 % (11.9-15.9); WHITE BLOOD COUNT 3.6 K/mm3 (4.0-10.0)
[2024-02-05 11:00] LABS: POTASSIUM 4.4 mmol/L (3.5-5.1)
[2024-02-05] MEDS: SODIUM CHLORIDE 250 ML IV ONE (11:00)
[2024-02-05 11:02] LABS: ALBUMIN 3.9 g/dl (3.4-5.0)
[2024-02-05 11:03] LABS: CALCIUM 9.5 mg/dL (8.5-10.1); MAGNESIUM 2.1 mg/dL (1.8-2.4)
[2024-02-05 11:04] LABS: BILIRUBIN,DIRECT 0.2 mg/dL (0.0-0.2)
[2024-02-05 11:06] LABS: BILIRUBIN,TOTAL 0.6 mg/dL (0.2-1); CREATININE 0.9 mg/dL (0.55-1.3); TOT PROT 7.2 g/dl (6.4-8.2)
[2024-02-05 11:25] LABS: PH,URINE 5.5 (5.0-8.0); URINE APPEARANCE CLEAR; URINE BILIRUBIN NEGATIVE (NEGATIVE); URINE COLOR YELLOW; URINE GLUCOSE (UA) NEGATIVE (NEGATIVE); URINE KETONE NEGATIVE (NEGATIVE); URINE LEUK ESTERASE NEGATIVE (NEGATIVE); URINE NITRITE NEGATIVE (NEGATIVE); URINE PROTEIN TRACE (NEGATIVE); URINE UROBILINOGEN 0.2 mg/dL (0.2-1.0)
[2024-02-05] MEDS: PALONOSETRON HCL 0.25 MG/5 ML VIAL IVPUSH ONE (11:35)
[2024-02-05] MEDS: DEXAMETHASONE INJECTION 10 MG in SODIUM CHLORIDE 50 ML IVPB ONE (11:38)
[2024-02-05] MEDS: BEVACIZUMAB AWWB IVPB ONE (12:14)
[2024-02-05] MEDS: SODIUM CHLORIDE IVPB ONE (12:14)
[2024-02-05] MEDS: DEXTROSE 5% IVPB ONE (12:56)
[2024-02-05] MEDS: LEUCOVORIN IVPB ONE (12:56)
[2024-02-05] MEDS: WATER IVPB ONE (12:56)
[2024-02-05] MEDS: IRINOTECAN HCL 370 MG in DEXTROSE 5%-WATER - 500 ML IVPB ONE (12:57)
[2024-02-05] MEDS: ATROPINE SO4 0.4 MG/1 ML VIAL IVPUSH ONE (12:58)
[2024-02-05] MEDS: PORTA CATH FLUSH 10 ML IVPUSH PRN (15:22)
[2024-02-05] MEDS: FLUOROURACIL 500 MG/10 ML VIAL IVPUSH ONE (15:22)
[2024-02-05] MEDS: FLUOROURACIL 5,000 MG in SODIUM CHLORIDE 38 ML CP ONE (15:22)
[2024-02-05 17:37] VITALS: BP 151/60; PULSE 34; RESP 20; TEMP 97.4
[2024-02-07] MEDS ORDERED: PORTA CATH FLUSH 10 ML IVPUSH PRN (08:59)
== END 2024-02-05 15:50 | disposition home or self-care (01) ==
LOC: JONCCHEMO 10:11 → J7W 10:12 → JONCCHEMO 15:50
PROVIDERS: ATTEND Internal Medicine Hematology & Oncology
DX: Z51.11 Encounter for antineoplastic chemotherapy (principal); C20 Malignant neoplasm of rectum; C78.7 Secondary malignant neoplasm of liver and intrahepatic bile duct
CPT/HCPCS: 36415; 80048; 80076; 81003; 83735; 84156; 85025; 87086; 96367; 96368; 96375; 96413; 96415; 96417; G0498; J1100; J9190; J9206; Q5107

== ENCOUNTER 2024-02-19 10:12 | Day surgery (SDC) | payer BC ==
[2024-02-19 10:47] LABS: BASO % 0.7 % (0-2.0); EOS % 4.4 % (0-4.5); HEMATOCRIT 39.3 % (35.4-49); HEMOGLOBIN 12.9 GM/dL (11.7-16.9); LYMPH % 18.1 % (8-40); MCH 34.2 pg (25.7-33.7); MCHC 32.9 g/dl (32.0-35.9); MEAN CELL VOLUME 104.1 fl (80-96); MEAN PLT VOLUME 7.6 fl (7.5-11.1); MONO % 15.8 % (3.8-10.2); PLATELET COUNT 232 10^3/uL (134-434); RBC 3.77 M/mm3 (4.00-5.60); RDW 17.7 % (11.9-15.9); WHITE BLOOD COUNT 3.1 K/mm3 (4.0-10.0)
[2024-02-19 11:06] LABS: POTASSIUM 4.3 mmol/L (3.5-5.1)
[2024-02-19 11:08] LABS: ALBUMIN 3.7 g/dl (3.4-5.0); BLOOD UREA NITROGEN 11.2 mg/dL (7-18); CALCIUM 8.9 mg/dL (8.5-10.1); MAGNESIUM 2.1 mg/dL (1.8-2.4)
[2024-02-19 11:11] LABS: BILIRUBIN,DIRECT 0.2 mg/dL (0.0-0.2); CREATININE 0.8 mg/dL (0.55-1.3)
[2024-02-19 11:13] LABS: BILIRUBIN,TOTAL 0.6 mg/dL (0.2-1); TOT PROT 6.6 g/dl (6.4-8.2)
[2024-02-19] MEDS: SODIUM CHLORIDE 250 ML IV ONE (11:15)
[2024-02-19] MEDS: PALONOSETRON HCL 0.25 MG/5 ML VIAL IVPUSH ONE (12:15)
[2024-02-19] MEDS: DEXAMETHASONE INJECTION 10 MG in SODIUM CHLORIDE 50 ML IVPB ONE (12:19)
[2024-02-19] MEDS: BEVACIZUMAB AWWB IVPB ONE (12:35)
[2024-02-19] MEDS: SODIUM CHLORIDE IVPB ONE (12:35)
[2024-02-19] MEDS: ATROPINE SO4 0.4 MG/1 ML VIAL IVPUSH ONE (13:08)
[2024-02-19] MEDS: WATER IVPB ONE (13:11)
[2024-02-19] MEDS: LEUCOVORIN IVPB ONE (13:11)
[2024-02-19] MEDS: DEXTROSE 5% IVPB ONE (13:11)
[2024-02-19] MEDS: IRINOTECAN HCL 370 MG in DEXTROSE 5%-WATER - 500 ML IVPB ONE (13:15)
[2024-02-19] MEDS: FLUOROURACIL 500 MG/10 ML VIAL IVPUSH ONE (15:12)
[2024-02-19] MEDS: FLUOROURACIL 4,975 MG in SODIUM CHLORIDE 1.7 ML CP ONE (15:12)
[2024-02-19 17:04] VITALS: BP 110/57; PULSE 42; RESP 20; TEMP 98
== END 2024-02-19 15:30 | disposition home or self-care (01) ==
LOC: JONCCHEMO 10:12
PROVIDERS: ATTEND Internal Medicine Hematology & Oncology
PROC: 3E04305 Introduction of Other Antineoplastic into Central Vein, Percutaneous Approach (ICD-10-PCS; principal; 2024-02-19)
PROC: 3E043GC Introduction of Other Therapeutic Substance into Central Vein, Percutaneous Approach (ICD-10-PCS; 2024-02-19)
DX: Z51.11 Encounter for antineoplastic chemotherapy (principal); C20 Malignant neoplasm of rectum; C78.89 Secondary malignant neoplasm of other digestive organs
CPT/HCPCS: 36415; 80048; 80076; 83735; 84156; 85025; 96374; 96375; 96411; 96413; 96415; 96417; G0498; J1100; J9190; J9206; Q5107

== ENCOUNTER 2024-03-04 10:26 | Day surgery (SDC) | payer BC ==
[2024-03-04] MEDS: SODIUM CHLORIDE 250 ML IV ONE (11:00)
[2024-03-04 11:49] LABS: BASO % 0.9 % (0-2.0); EOS % 4.2 % (0-4.5); HEMATOCRIT 39.8 % (35.4-49); HEMOGLOBIN 13.6 GM/dL (11.7-16.9); LYMPH % 27.7 % (8-40); MCH 35.3 pg (25.7-33.7); MCHC 34.1 g/dl (32.0-35.9); MEAN CELL VOLUME 103.5 fl (80-96); MEAN PLT VOLUME 7.9 fl (7.5-11.1); MONO % 18.9 % (3.8-10.2); NEUT % 48.3 % (42.8-82.8); PLATELET COUNT 247 10^3/uL (134-434); RBC 3.85 M/mm3 (4.00-5.60); WHITE BLOOD COUNT 2.4 K/mm3 (4.0-10.0)
[2024-03-04 12:04] LABS: CHLORIDE 104 mmol/L (98-107); POTASSIUM 4.2 mmol/L (3.5-5.1); SODIUM 137 mmol/L (136-145)
[2024-03-04 12:06] LABS: ALBUMIN 3.9 g/dl (3.4-5.0); ANION GAP 6 mmol/L (4-13); BLOOD UREA NITROGEN 9.8 mg/dL (7-18); CALCIUM 9.2 mg/dL (8.5-10.1); CO2 26 mmol/L (21-32); GLUCOSE,RANDOM 120 mg/dL (74-106); MAGNESIUM 2.4 mg/dL (1.8-2.4)
[2024-03-04 12:09] LABS: BILIRUBIN,DIRECT 0.2 mg/dL (0.0-0.2); CREATININE 0.8 mg/dL (0.55-1.3); SGOT/AST 29 U/L (15-37); SGPT/ALT 35 U/L (13-61)
[2024-03-04 12:11] LABS: BILIRUBIN,TOTAL 0.6 mg/dL (0.2-1); TOT PROT 6.9 g/dl (6.4-8.2)
[2024-03-04 12:12] LABS: ALK PHOS 72 U/L (45-117)
[2024-03-04] MEDS ORDERED: FLUOROURACIL 500 MG/10 ML VIAL IVPUSH ONE (12:30)
[2024-03-04] MEDS ORDERED: FLUOROURACIL 4,975 MG in SODIUM CHLORIDE 1.7 ML CP ONE (12:45)
[2024-03-04] MEDS: PALONOSETRON HCL 0.25 MG/5 ML VIAL IVPUSH ONE (13:05)
[2024-03-04] MEDS: DEXAMETHASONE INJECTION 10 MG in SODIUM CHLORIDE 50 ML IVPB ONE (13:07)
[2024-03-04] MEDS: BEVACIZUMAB AWWB IVPB ONE (13:28)
[2024-03-04] MEDS: SODIUM CHLORIDE IVPB ONE (13:28)
[2024-03-04] MEDS: ATROPINE SO4 0.4 MG/1 ML VIAL IVPUSH ONE (14:06)
[2024-03-04] MEDS: WATER IVPB ONE (14:12)
[2024-03-04] MEDS: DEXTROSE 5% IVPB ONE (14:12)
[2024-03-04] MEDS: LEUCOVORIN IVPB ONE (14:12)
[2024-03-04] MEDS: IRINOTECAN HCL 370 MG in DEXTROSE 5%-WATER - 500 ML IVPB ONE (14:14)
[2024-03-04] MEDS: FLUOROURACIL 500 MG/10 ML VIAL IVPUSH ONE (16:19)
[2024-03-04] MEDS: SODIUM CHLORIDE CP ONE (16:22)
[2024-03-04] MEDS: FLUOROURACIL CP ONE (16:22)
[2024-03-04 19:00] VITALS: RESP 20; TEMP 97.7
[2024-03-04 19:10] VITALS: BP 142/78; PULSE 50
[2024-03-04] MEDS ORDERED: PORTA CATH FLUSH 10 ML IVPUSH PRN (19:10)
== END 2024-03-04 16:40 | disposition home or self-care (01) ==
LOC: JONCCHEMO 10:26 → J7W 10:34 → JONCCHEMO 16:40
PROVIDERS: ATTEND Internal Medicine Hematology & Oncology
DX: Z51.11 Encounter for antineoplastic chemotherapy (principal)
CPT/HCPCS: 36415; 80048; 80076; 83735; 84156; 85025; G0498; J1100; J9190; J9206; Q5107

== ENCOUNTER 2024-04-01 10:00 | Day surgery (SDC) | payer BC ==
[2024-04-01 10:42] LABS: BASO % 2.1 % (0-2.0); EOS % 4.2 % (0-4.5); HEMATOCRIT 37.6 % (35.4-49); HEMOGLOBIN 12.3 GM/dL (11.7-16.9); LYMPH % 19.8 % (8-40); MCH 34.3 pg (25.7-33.7); MCHC 32.8 g/dl (32.0-35.9); MEAN CELL VOLUME 104.7 fl (80-96); MEAN PLT VOLUME 8.2 fl (7.5-11.1); MONO % 17.4 % (3.8-10.2); NEUT % 56.5 % (42.8-82.8); PLATELET COUNT 348 10^3/uL (134-434); RBC 3.59 M/mm3 (4.00-5.60); RDW 15.6 % (11.9-15.9); WHITE BLOOD COUNT 3.9 K/mm3 (4.0-10.0)
[2024-04-01] MEDS: SODIUM CHLORIDE 250 ML IV ONE (11:00)
[2024-04-01 11:23] LABS: POTASSIUM 4.6 mmol/L (3.5-5.1)
[2024-04-01 11:27] LABS: ALBUMIN 3.5 g/dl (3.4-5.0); BLOOD UREA NITROGEN 13.7 mg/dL (7-18); CALCIUM 9.3 mg/dL (8.5-10.1); MAGNESIUM 2.2 mg/dL (1.8-2.4)
[2024-04-01 11:30] LABS: CREATININE 0.7 mg/dL (0.55-1.3)
[2024-04-01 11:31] LABS: BILIRUBIN,DIRECT 0.2 mg/dL (0.0-0.2)
[2024-04-01 11:32] LABS: BILIRUBIN,TOTAL 0.8 mg/dL (0.2-1); TOT PROT 6.7 g/dl (6.4-8.2)
[2024-04-01] MEDS: PALONOSETRON HCL 0.25 MG/5 ML VIAL IVPUSH ONE (12:08)
[2024-04-01] MEDS: DEXAMETHASONE INJECTION 10 MG in SODIUM CHLORIDE 50 ML IVPB ONE (12:09)
[2024-04-01] MEDS: SODIUM CHLORIDE IVPB ONE (12:27)
[2024-04-01] MEDS: BEVACIZUMAB AWWB IVPB ONE (12:27)
[2024-04-01] MEDS: ATROPINE SO4 0.4 MG/1 ML VIAL IVPUSH ONE (13:09)
[2024-04-01] MEDS: WATER IVPB ONE (13:12)
[2024-04-01] MEDS: DEXTROSE 5% IVPB ONE (13:12)
[2024-04-01] MEDS: IRINOTECAN HCL 370 MG in DEXTROSE 5%-WATER - 500 ML IVPB ONE (13:12)
[2024-04-01] MEDS: LEUCOVORIN IVPB ONE (13:12)
[2024-04-01] MEDS: SODIUM CHLORIDE CP ONE (15:11)
[2024-04-01] MEDS: FLUOROURACIL CP ONE (15:11)
[2024-04-01 15:51] VITALS: RESP 18; TEMP 97.7
[2024-04-01 16:38] VITALS: BP 138/73; PULSE 49
[2024-04-01] MEDS ORDERED: PORTA CATH FLUSH 10 ML IVPUSH PRN (16:38)
== END 2024-04-01 15:30 | disposition home or self-care (01) ==
LOC: JONCCHEMO 10:00 → J7W 10:01 → JONCCHEMO 15:30
PROVIDERS: ATTEND Internal Medicine Hematology & Oncology
PROC: 3E04305 Introduction of Other Antineoplastic into Central Vein, Percutaneous Approach (ICD-10-PCS; principal; 2024-04-01)
PROC: 3E043GC Introduction of Other Therapeutic Substance into Central Vein, Percutaneous Approach (ICD-10-PCS; 2024-04-01)
DX: Z51.11 Encounter for antineoplastic chemotherapy (principal); C20 Malignant neoplasm of rectum; C78.89 Secondary malignant neoplasm of other digestive organs
CPT/HCPCS: 36415; 80048; 80076; 83735; 84156; 85025; 96366; 96367; 96411; 96413; 96415; 96417; G0498; J1100; J9206; Q5107

== ENCOUNTER 2024-04-03 13:00 | Day surgery (SDC) | payer BC ==
[2024-04-03 16:45] VITALS: BP 104/64; PULSE 45; RESP 20; TEMP 97.7
[2024-04-03] MEDS ORDERED: PORTA CATH FLUSH 10 ML IVPUSH PRN (16:45)
== END 2024-04-03 13:55 | disposition home or self-care (01) ==
LOC: JONCCHEMO 13:00 → J7W 15:17
PROVIDERS: ATTEND Internal Medicine Hematology & Oncology
DX: Z53.8 Procedure and treatment not carried out for other reasons (principal)

== ENCOUNTER 2024-04-15 10:12 | Day surgery (SDC) | payer BC ==
[2024-04-15 11:30] LABS: HEMATOCRIT 37.6 % (35.4-49); HEMOGLOBIN 12.5 GM/dL (11.7-16.9); MCH 34.3 pg (25.7-33.7); MCHC 33.3 g/dl (32.0-35.9); MEAN CELL VOLUME 103.2 fl (80-96); MEAN PLT VOLUME 7.8 fl (7.5-11.1); PLATELET COUNT 326 10^3/uL (134-434); RBC 3.64 M/mm3 (4.00-5.60); RDW 15.7 % (11.9-15.9); WHITE BLOOD COUNT 4.3 K/mm3 (4.0-10.0)
[2024-04-15 12:00] LABS: CHLORIDE 107 mmol/L (98-107); POTASSIUM 4.6 mmol/L (3.5-5.1); SODIUM 140 mmol/L (136-145)
[2024-04-15 12:04] LABS: ALBUMIN 3.6 g/dl (3.4-5.0); ANION GAP 3 mmol/L (4-13); BLOOD UREA NITROGEN 11.3 mg/dL (7-18); CALCIUM 9.1 mg/dL (8.5-10.1); CO2 29 mmol/L (21-32); GLUCOSE,RANDOM 105 mg/dL (74-106); MAGNESIUM 2.3 mg/dL (1.8-2.4)
[2024-04-15 12:07] LABS: BILIRUBIN,DIRECT 0.1 mg/dL (0.0-0.2); CREATININE 0.8 mg/dL (0.55-1.3); SGPT/ALT 24 U/L (13-61)
[2024-04-15 12:08] LABS: SGOT/AST 22 U/L (15-37)
[2024-04-15 12:09] LABS: BILIRUBIN,TOTAL 0.3 mg/dL (0.2-1); TOT PROT 6.4 g/dl (6.4-8.2)
[2024-04-15 12:10] LABS: ALK PHOS 72 U/L (45-117)
[2024-04-15 12:26] LABS: ANISOCYTOSIS 1+; MACROCYTOSIS 1+
[2024-04-15] MEDS: SODIUM CHLORIDE 250 ML IV ONE (12:45)
[2024-04-15] MEDS: PALONOSETRON HCL 0.25 MG/5 ML VIAL IVPUSH ONE (12:45)
[2024-04-15] MEDS: DEXAMETHASONE INJECTION 10 MG in SODIUM CHLORIDE 50 ML IVPB ONE (13:24)
[2024-04-15] MEDS: BEVACIZUMAB-AWWB 400 MG, BEVACIZUMAB-AWWB 30 MG in SODIUM CHLORIDE 100 ML IVPB ONE (13:48)
[2024-04-15] MEDS: ATROPINE SO4 0.4 MG/1 ML VIAL IVPUSH ONE (14:19)
[2024-04-15] MEDS: WATER IVPB ONE (14:21)
[2024-04-15] MEDS: DEXTROSE 5% IVPB ONE (14:21)
[2024-04-15] MEDS: LEUCOVORIN IVPB ONE (14:21)
[2024-04-15] MEDS: IRINOTECAN HCL 370 MG in DEXTROSE 5%-WATER - 500 ML IVPB ONE (14:25)
[2024-04-15] MEDS: FLUOROURACIL CP ONE (16:37)
[2024-04-15] MEDS: SODIUM CHLORIDE CP ONE (16:37)
[2024-04-15 16:46] VITALS: BP 109/74; PULSE 46; RESP 20; TEMP 97.2
[2024-04-15] MEDS ORDERED: PORTA CATH FLUSH 10 ML IVPUSH PRN (17:08)
== END 2024-04-15 16:50 | disposition home or self-care (01) ==
LOC: JONCCHEMO 10:12
PROVIDERS: ATTEND Internal Medicine Hematology & Oncology
PROC: 3E04305 Introduction of Other Antineoplastic into Central Vein, Percutaneous Approach (ICD-10-PCS; principal; 2024-04-15)
PROC: 3E043GC Introduction of Other Therapeutic Substance into Central Vein, Percutaneous Approach (ICD-10-PCS; 2024-04-15)
DX: Z51.11 Encounter for antineoplastic chemotherapy (principal); C20 Malignant neoplasm of rectum; C78.7 Secondary malignant neoplasm of liver and intrahepatic bile duct
CPT/HCPCS: 36415; 80048; 80076; 83735; 84156; 85025; 96375; 96411; 96413; 96417; G0498; J1100; J9206; Q5107

== ENCOUNTER 2024-04-29 10:10 | Day surgery (SDC) | payer BC ==
[2024-04-29 10:16] LABS: ABSOLUTE IMMATURE GRANULOCYTES 0.01 x10^3/uL (0.0-0.031); BASOPHILS # 0.04 x10^3/uL (0.01-0.08); EOSINOPHIL % 8.2 % (0.8-7.0); EOSINOPHILS # 0.34 x10^3/uL (0.04-0.54); HEMATOCRIT 38.8 % (40.1-51.0); HEMOGLOBIN 12.7 g/dL (13.7-17.5); MCHC 32.7 g/dl (32.3-36.5); MEAN CELL VOLUME 101.3 fl (79.0-92.2); MEAN PLT VOLUME 9.5 fl (9.4-12.4); MONOCYTE # 0.52 x10^3/uL (0.30-0.82); MONOCYTE % 12.5 % (5.3-12.2); PLATELET COUNT 300 x10^3/uL (163-337); RDW 14.5 % (12.2-16.4)
[2024-04-29] MEDS ORDERED: LEUCOVORIN IVPB ONE (10:30)
[2024-04-29] MEDS ORDERED: WATER IVPB ONE (10:30)
[2024-04-29] MEDS ORDERED: DEXTROSE 5% IVPB ONE (10:30)
[2024-04-29 10:34] LABS: CHLORIDE 105 mmol/L (98-107); POTASSIUM 4.3 mmol/L (3.5-5.1); SODIUM 138 mmol/L (136-145)
[2024-04-29 10:37] LABS: ALBUMIN 3.7 g/dl (3.4-5.0); ANION GAP 6 mmol/L (4-13); BLOOD UREA NITROGEN 9.3 mg/dL (7-18); CO2 27 mmol/L (21-32); GLUCOSE,RANDOM 126 mg/dL (74-106); MAGNESIUM 2.1 mg/dL (1.8-2.4)
[2024-04-29 10:40] LABS: BILIRUBIN,DIRECT 0.2 mg/dL (0.0-0.2); CREATININE 0.7 mg/dL (0.55-1.3); SGOT/AST 17 U/L (15-37); SGPT/ALT 25 U/L (13-61)
[2024-04-29 10:42] LABS: BILIRUBIN,TOTAL 0.5 mg/dL (0.2-1); TOT PROT 6.6 g/dl (6.4-8.2)
[2024-04-29 10:43] LABS: ALK PHOS 64 U/L (45-117)
[2024-04-29] MEDS: SODIUM CHLORIDE 250 ML IV ONE (11:23)
[2024-04-29] MEDS: PALONOSETRON HCL 0.25 MG/5 ML VIAL IVPUSH ONE (11:23)
[2024-04-29] MEDS: DEXAMETHASONE INJECTION 10 MG in SODIUM CHLORIDE 50 ML IVPB ONE (11:26)
[2024-04-29] MEDS: BEVACIZUMAB AWWB IVPB ONE (12:41)
[2024-04-29] MEDS: SODIUM CHLORIDE IVPB ONE (12:41)
[2024-04-29] MEDS: ATROPINE SO4 0.4 MG/1 ML VIAL IVPUSH ONE (13:13)
[2024-04-29] MEDS: DEXTROSE 5% IVPB ONE (13:19)
[2024-04-29] MEDS: WATER IVPB ONE (13:19)
[2024-04-29] MEDS: LEUCOVORIN IVPB ONE (13:19)
[2024-04-29] MEDS: IRINOTECAN HCL 370 MG in DEXTROSE 5%-WATER - 500 ML IVPB ONE (13:19)
[2024-04-29] MEDS: SODIUM CHLORIDE CP ONE (15:43)
[2024-04-29] MEDS: FLUOROURACIL CP ONE (15:43)
[2024-04-29 17:07] VITALS: TEMP 97.5
[2024-04-29 17:28] VITALS: BP 140/76; PULSE 56; RESP 18
[2024-04-29] MEDS ORDERED: PORTA CATH FLUSH 10 ML IVPUSH PRN (17:28)
== END 2024-04-29 16:30 | disposition home or self-care (01) ==
LOC: JONCCHEMO 10:10 → J7W 11:48 → JONCCHEMO 16:30
PROVIDERS: ATTEND Internal Medicine Hematology & Oncology
PROC: 3E04305 Introduction of Other Antineoplastic into Central Vein, Percutaneous Approach (ICD-10-PCS; principal; 2024-04-29)
PROC: 3E043GC Introduction of Other Therapeutic Substance into Central Vein, Percutaneous Approach (ICD-10-PCS; 2024-04-29)
PROC: 3E043GC Introduction of Other Therapeutic Substance into Central Vein, Percutaneous Approach (ICD-10-PCS; 2024-04-29)
DX: Z51.11 Encounter for antineoplastic chemotherapy (principal); C20 Malignant neoplasm of rectum; C78.89 Secondary malignant neoplasm of other digestive organs
CPT/HCPCS: 36415; 80048; 80076; 83735; 84156; 85025; 96366; 96367; 96375; 96413; 96417; G0498; J1100; J9206; Q5107

== ENCOUNTER 2024-05-01 13:28 | Day surgery (SDC) | payer BC ==
[2024-05-01] MEDS: IRON SUCROSE INJECTION 200 MG in SODIUM CHLORIDE 100 ML IVPB ONE (13:50)
[2024-05-01] MEDS: PORTA CATH FLUSH 10 ML IVPUSH PRN (14:25)
[2024-05-01 14:48] VITALS: RESP 18; TEMP 97.7
[2024-05-01 15:01] VITALS: BP 134/80; PULSE 47
== END 2024-05-01 14:55 | disposition home or self-care (01) ==
LOC: JONCCHEMO 13:28 → J7W 13:29 → JONCCHEMO 14:55
PROVIDERS: ATTEND Internal Medicine Hematology & Oncology
PROC: 3E043GC Introduction of Other Therapeutic Substance into Central Vein, Percutaneous Approach (ICD-10-PCS; principal; 2024-05-01)
DX: C20 Malignant neoplasm of rectum (principal); C78.80 Secondary malignant neoplasm of unspecified digestive organ; Z76.89 Persons encountering health services in other specified circumstances
CPT/HCPCS: 96365; J1756

== ENCOUNTER 2024-05-13 09:56 | Day surgery (SDC) | payer BC ==
[2024-05-13 10:13] LABS: ABSOLUTE IMMATURE GRANULOCYTES 0.04 x10^3/uL (0.0-0.031); BASOPHILS # 0.06 x10^3/uL (0.01-0.08); EOSINOPHIL % 5.8 % (0.8-7.0); EOSINOPHILS # 0.29 x10^3/uL (0.04-0.54); HEMATOCRIT 41.2 % (40.1-51.0); HEMOGLOBIN 13.1 g/dL (13.7-17.5); MCHC 31.8 g/dl (32.3-36.5); MEAN CELL VOLUME 102.5 fl (79.0-92.2); MEAN PLT VOLUME 9.2 fl (9.4-12.4); MONOCYTE # 0.74 x10^3/uL (0.30-0.82); MONOCYTE % 14.9 % (5.3-12.2); PLATELET COUNT 279 x10^3/uL (163-337); RDW 14.4 % (12.2-16.4)
[2024-05-13 10:30] LABS: POTASSIUM 4.1 mmol/L (3.5-5.1)
[2024-05-13] MEDS: SODIUM CHLORIDE 250 ML IV ONE (10:30)
[2024-05-13 10:33] LABS: ALBUMIN 3.8 g/dl (3.4-5.0); BLOOD UREA NITROGEN 12.3 mg/dL (7-18); CALCIUM 9.4 mg/dL (8.5-10.1); MAGNESIUM 2.3 mg/dL (1.8-2.4)
[2024-05-13 10:36] LABS: BILIRUBIN,DIRECT 0.2 mg/dL (0.0-0.2); CREATININE 0.8 mg/dL (0.55-1.3)
[2024-05-13 10:38] LABS: BILIRUBIN,TOTAL 0.6 mg/dL (0.2-1); TOT PROT 7.1 g/dl (6.4-8.2)
[2024-05-13] MEDS: PALONOSETRON HCL 0.25 MG/5 ML VIAL IVPUSH ONE (11:59)
[2024-05-13] MEDS: DEXAMETHASONE INJECTION 10 MG in SODIUM CHLORIDE 50 ML IVPB ONE (12:08)
[2024-05-13] MEDS: BEVACIZUMAB AWWB IVPB ONE (12:27)
[2024-05-13] MEDS: SODIUM CHLORIDE IVPB ONE (12:27)
[2024-05-13] MEDS: ATROPINE SO4 0.4 MG/1 ML VIAL IVPUSH ONE (13:11)
[2024-05-13] MEDS: LEUCOVORIN IVPB ONE (13:12)
[2024-05-13] MEDS: DEXTROSE 5% IVPB ONE (13:12)
[2024-05-13] MEDS: WATER IVPB ONE (13:12)
[2024-05-13] MEDS: IRINOTECAN HCL 370 MG in DEXTROSE 5%-WATER - 500 ML IVPB ONE (13:17)
[2024-05-13] MEDS: FLUOROURACIL CP ONE (15:47)
[2024-05-13] MEDS: SODIUM CHLORIDE CP ONE (15:47)
[2024-05-13 16:30] VITALS: BP 132/81; PULSE 49; RESP 18; TEMP 97.4
[2024-05-13] MEDS ORDERED: PORTA CATH FLUSH 10 ML IVPUSH PRN (16:30)
== END 2024-05-13 16:56 | disposition home or self-care (01) ==
LOC: JONCCHEMO 09:56
PROVIDERS: ATTEND Internal Medicine Hematology & Oncology
DX: Z51.11 Encounter for antineoplastic chemotherapy (principal); C18.9 Malignant neoplasm of colon, unspecified; C78.7 Secondary malignant neoplasm of liver and intrahepatic bile duct
CPT/HCPCS: 36415; 80048; 80076; 82378; 83735; 84156; 85025; 96366; 96367; 96375; 96413; 96417; G0498; J1100; J9206; Q5107

== ENCOUNTER 2024-05-15 14:02 | Day surgery (SDC) | payer BC ==
[2024-05-15] MEDS: IRON SUCROSE INJECTION 200 MG in SODIUM CHLORIDE 100 ML IVPB ONE (14:00)
[2024-05-15 14:47] VITALS: RESP 20; TEMP 97.4
[2024-05-15 15:07] VITALS: BP 116/41; PULSE 68
[2024-05-15] MEDS ORDERED: PORTA CATH FLUSH 10 ML IVPUSH PRN (15:07)
== END 2024-05-15 15:29 | disposition home or self-care (01) ==
LOC: JONCCHEMO 14:02
PROVIDERS: ATTEND Internal Medicine Hematology & Oncology
PROC: 3E043GC Introduction of Other Therapeutic Substance into Central Vein, Percutaneous Approach (ICD-10-PCS; principal; 2024-05-15)
DX: C20 Malignant neoplasm of rectum (principal); C78.7 Secondary malignant neoplasm of liver and intrahepatic bile duct
CPT/HCPCS: 96365; J1756

== ENCOUNTER 2024-05-29 13:30 | Day surgery (SDC) | payer BC ==
[2024-05-29] MEDS: IRON SUCROSE INJECTION 200 MG in SODIUM CHLORIDE 100 ML IVPB ONE (13:52)
[2024-05-29] MEDS: PORTA CATH FLUSH 10 ML IVPUSH PRN (14:45)
[2024-05-29 15:34] VITALS: TEMP 97.7
[2024-05-29 15:37] VITALS: BP 121/65; PULSE 51; RESP 18
== END 2024-05-29 14:45 | disposition home or self-care (01) ==
LOC: JONCCHEMO 13:30
PROVIDERS: ATTEND Internal Medicine Hematology & Oncology
PROC: 3E043GC Introduction of Other Therapeutic Substance into Central Vein, Percutaneous Approach (ICD-10-PCS; principal; 2024-05-29)
DX: C20 Malignant neoplasm of rectum (principal); C78.7 Secondary malignant neoplasm of liver and intrahepatic bile duct
CPT/HCPCS: 96365; J1756

== ENCOUNTER 2024-06-24 11:12 | Day surgery (SDC) | payer BC ==
[2024-06-24 12:02] LABS: ABSOLUTE IMMATURE GRANULOCYTES 0.03 x10^3/uL (0.0-0.031); BASOPHILS # 0.05 x10^3/uL (0.01-0.08); EOSINOPHIL % 3.5 % (0.8-7.0); EOSINOPHILS # 0.19 x10^3/uL (0.04-0.54); HEMATOCRIT 38.2 % (40.1-51.0); HEMOGLOBIN 12.3 g/dL (13.7-17.5); MCHC 32.2 g/dl (32.3-36.5); MEAN CELL VOLUME 99.7 fl (79.0-92.2); MEAN PLT VOLUME 9.6 fl (9.4-12.4); MONOCYTE # 0.72 x10^3/uL (0.30-0.82); MONOCYTE % 13.3 % (5.3-12.2); PLATELET COUNT 301 x10^3/uL (163-337); RDW 14.7 % (12.2-16.4)
[2024-06-24 12:22] LABS: POTASSIUM 4.1 mmol/L (3.5-5.1)
[2024-06-24 12:25] LABS: ALBUMIN 3.9 g/dl (3.4-5.0); BLOOD UREA NITROGEN 8.6 mg/dL (7-18); CALCIUM 9.8 mg/dL (8.5-10.1); MAGNESIUM 2.3 mg/dL (1.8-2.4)
[2024-06-24 12:28] LABS: BILIRUBIN,DIRECT 0.1 mg/dL (0.0-0.2)
[2024-06-24 12:29] LABS: CREATININE 0.7 mg/dL (0.55-1.3)
[2024-06-24 12:30] LABS: BILIRUBIN,TOTAL 0.5 mg/dL (0.2-1); TOT PROT 6.7 g/dl (6.4-8.2)
[2024-06-24] MEDS: SODIUM CHLORIDE 250 ML IV ONE (12:44)
[2024-06-24] MEDS: DEXAMETHASONE INJECTION 10 MG in SODIUM CHLORIDE 50 ML IVPB ONE (13:08)
[2024-06-24] MEDS: PALONOSETRON HCL 0.25 MG/5 ML VIAL IVPUSH ONE (13:09)
[2024-06-24] MEDS: BEVACIZUMAB AWWB IVPB ONE (13:34)
[2024-06-24] MEDS: SODIUM CHLORIDE IVPB ONE (13:34)
[2024-06-24] MEDS: ATROPINE SO4 0.4 MG/1 ML VIAL IVPUSH ONE (14:20)
[2024-06-24] MEDS: IRINOTECAN HCL 380 MG in DEXTROSE 5%-WATER - 500 ML IVPB ONE (14:21)
[2024-06-24] MEDS: LEUCOVORIN INJECTION - 836 MG in DEXTROSE 5%-WATER - 250 ML IVPB ONE (14:21)
[2024-06-24 16:07] VITALS: RESP 20; TEMP 97.4
[2024-06-24] MEDS ORDERED: PORTA CATH FLUSH 10 ML IVPUSH PRN (16:07)
[2024-06-24] MEDS: SODIUM CHLORIDE CP ONE (16:28)
[2024-06-24] MEDS: FLUOROURACIL CP ONE (16:28)
[2024-06-24 16:46] VITALS: BP 170/62; PULSE 51
== END 2024-06-24 16:51 | disposition home or self-care (01) ==
LOC: JONCCHEMO 11:12 → J7W 11:13 → JONCCHEMO 16:51
PROVIDERS: ATTEND Internal Medicine Hematology & Oncology
DX: Z51.11 Encounter for antineoplastic chemotherapy (principal); C20 Malignant neoplasm of rectum; C78.7 Secondary malignant neoplasm of liver and intrahepatic bile duct
CPT/HCPCS: 36415; 80048; 80076; 83735; 84156; 85025; 96368; 96375; 96413; 96417; G0498; J1100; J9206; Q5107

== ENCOUNTER 2024-07-08 10:24 | Day surgery (SDC) | payer BC ==
[2024-07-08 10:34] LABS: ABSOLUTE IMMATURE GRANULOCYTES 0.03 x10^3/uL (0.0-0.031); BASOPHILS # 0.05 x10^3/uL (0.01-0.08); EOSINOPHIL % 4.3 % (0.8-7.0); EOSINOPHILS # 0.25 x10^3/uL (0.04-0.54); HEMATOCRIT 37.3 % (40.1-51.0); MCHC 32.2 g/dl (32.3-36.5); MEAN CELL VOLUME 99.2 fl (79.0-92.2); MEAN PLT VOLUME 9.2 fl (9.4-12.4); MONOCYTE # 0.81 x10^3/uL (0.30-0.82); PLATELET COUNT 331 x10^3/uL (163-337); RDW 15.1 % (12.2-16.4)
[2024-07-08 10:56] LABS: ALBUMIN 3.6 g/dl (3.4-5.0)
[2024-07-08 10:57] LABS: BLOOD UREA NITROGEN 8.9 mg/dL (7-18); MAGNESIUM 2.3 mg/dL (1.8-2.4)
[2024-07-08 10:59] LABS: BILIRUBIN,DIRECT 0.1 mg/dL (0.0-0.2)
[2024-07-08 11:00] LABS: CREATININE 0.7 mg/dL (0.55-1.3)
[2024-07-08 11:01] LABS: BILIRUBIN,TOTAL 0.4 mg/dL (0.2-1); TOT PROT 6.6 g/dl (6.4-8.2)
[2024-07-08] MEDS: SODIUM CHLORIDE 250 ML IV ONE (11:06)
[2024-07-08] MEDS: DEXAMETHASONE INJECTION 10 MG in SODIUM CHLORIDE 50 ML IVPB ONE (11:32)
[2024-07-08] MEDS: PALONOSETRON HCL 0.25 MG/5 ML VIAL IVPUSH ONE (11:33)
[2024-07-08] MEDS: BEVACIZUMAB AWWB IVPB ONE (11:50)
[2024-07-08] MEDS: SODIUM CHLORIDE IVPB ONE (11:50)
[2024-07-08] MEDS: LEUCOVORIN INJECTION - 836 MG in DEXTROSE 5%-WATER - 250 ML IVPB ONE (12:27)
[2024-07-08] MEDS: IRINOTECAN HCL 380 MG in DEXTROSE 5%-WATER - 500 ML IVPB ONE (12:27)
[2024-07-08] MEDS: ATROPINE SO4 0.4 MG/1 ML VIAL IVPUSH ONE (12:27)
[2024-07-08] MEDS: SODIUM CHLORIDE CP ONE (15:10)
[2024-07-08] MEDS: FLUOROURACIL CP ONE (15:10)
[2024-07-08 17:39] VITALS: BP 121/70; PULSE 43; RESP 20; TEMP 97.3
== END 2024-07-08 15:25 | disposition home or self-care (01) ==
LOC: JONCCHEMO 10:24 → J7W 10:44 → JONCCHEMO 15:25
PROVIDERS: ATTEND Internal Medicine Hematology & Oncology
PROC: 3E04305 Introduction of Other Antineoplastic into Central Vein, Percutaneous Approach (ICD-10-PCS; principal; 2024-07-08)
PROC: 3E043GC Introduction of Other Therapeutic Substance into Central Vein, Percutaneous Approach (ICD-10-PCS; 2024-07-08)
DX: Z51.11 Encounter for antineoplastic chemotherapy (principal); C20 Malignant neoplasm of rectum; C78.80 Secondary malignant neoplasm of unspecified digestive organ
CPT/HCPCS: 36415; 80048; 80076; 83735; 84156; 85025; 96365; 96375; 96413; 96417; G0498; J1100; J9206; Q5107

== ENCOUNTER 2024-07-21 10:40 | Day surgery (SDC) | payer BC ==
[2024-07-21 11:24] LABS: ABSOLUTE IMMATURE GRANULOCYTES 0.04 x10^3/uL (0.0-0.031); BASOPHILS # 0.04 x10^3/uL (0.01-0.08); EOSINOPHIL % 3.3 % (0.8-7.0); HEMATOCRIT 36.9 % (40.1-51.0); HEMOGLOBIN 12.1 g/dL (13.7-17.5); MCHC 32.8 g/dl (32.3-36.5); MEAN CELL VOLUME 97.1 fl (79.0-92.2); MEAN PLT VOLUME 9.6 fl (9.4-12.4); MONOCYTE # 0.72 x10^3/uL (0.30-0.82); MONOCYTE % 11.7 % (5.3-12.2); PLATELET COUNT 342 x10^3/uL (163-337); RDW 15.1 % (12.2-16.4)
[2024-07-21 11:40] LABS: CHLORIDE 105 mmol/L (98-107); SODIUM 138 mmol/L (136-145)
[2024-07-21 11:42] LABS: CALCIUM 9.4 mg/dL (8.5-10.1)
[2024-07-21 11:43] LABS: ALBUMIN 3.8 g/dl (3.4-5.0); ANION GAP 6 mmol/L (4-13); BLOOD UREA NITROGEN 7.7 mg/dL (7-18); CO2 27 mmol/L (21-32); GLUCOSE,RANDOM 117 mg/dL (74-106); MAGNESIUM 2.1 mg/dL (1.8-2.4)
[2024-07-21 11:45] LABS: BILIRUBIN,DIRECT 0.2 mg/dL (0.0-0.2)
[2024-07-21 11:46] LABS: CREATININE 0.7 mg/dL (0.55-1.3); SGOT/AST 18 U/L (15-37); SGPT/ALT 25 U/L (13-61)
[2024-07-21 11:47] LABS: BILIRUBIN,TOTAL 0.6 mg/dL (0.2-1)
[2024-07-21 11:48] LABS: TOT PROT 6.9 g/dl (6.4-8.2)
[2024-07-21 11:49] LABS: ALK PHOS 64 U/L (45-117)
[2024-07-21] MEDS: SODIUM CHLORIDE 250 ML IV ONE (12:11)
[2024-07-21] MEDS: PALONOSETRON HCL 0.25 MG/5 ML VIAL IVPUSH ONE (12:16)
[2024-07-21] MEDS: DEXAMETHASONE INJECTION 10 MG in SODIUM CHLORIDE 50 ML IVPB ONE (12:16)
[2024-07-21] MEDS: SODIUM CHLORIDE IVPB ONE (13:00)
[2024-07-21] MEDS: BEVACIZUMAB AWWB IVPB ONE (13:00)
[2024-07-21 13:14] VITALS: RESP 20; TEMP 97.9
[2024-07-21] MEDS: ATROPINE SO4 0.4 MG/1 ML VIAL IVPUSH ONE (13:31)
[2024-07-21] MEDS: IRINOTECAN HCL 370 MG in DEXTROSE 5%-WATER - 500 ML IVPB ONE (13:35)
[2024-07-21] MEDS: SODIUM CHLORIDE CP ONE (15:29)
[2024-07-21] MEDS: FLUOROURACIL CP ONE (15:29)
[2024-07-21 16:01] VITALS: BP 149/80; PULSE 52
== END 2024-07-21 15:40 | disposition home or self-care (01) ==
LOC: J7W 10:40 → JONCCHEMO 10:40
PROVIDERS: ATTEND Internal Medicine Hematology & Oncology
DX: Z51.11 Encounter for antineoplastic chemotherapy (principal); C20 Malignant neoplasm of rectum; C78.7 Secondary malignant neoplasm of liver and intrahepatic bile duct
CPT/HCPCS: 36415; 80048; 80076; 83735; 84156; 85025; 96367; 96368; 96375; 96413; 96417; G0498; J1100; J9206; Q5107

== ENCOUNTER 2024-08-05 10:03 | Day surgery (SDC) | payer BC ==
[2024-08-05 10:46] LABS: ABSOLUTE IMMATURE GRANULOCYTES 0.02 x10^3/uL (0.0-0.031); BASOPHILS # 0.04 x10^3/uL (0.01-0.08); EOSINOPHIL % 3.7 % (0.8-7.0); EOSINOPHILS # 0.20 x10^3/uL (0.04-0.54); MCHC 31.7 g/dl (32.3-36.5); MEAN CELL VOLUME 97.8 fl (79.0-92.2); MEAN PLT VOLUME 9.3 fl (9.4-12.4); MONOCYTE # 0.88 x10^3/uL (0.30-0.82); MONOCYTE % 16.3 % (5.3-12.2); RDW 15.6 % (12.2-16.4)
[2024-08-05] MEDS: SODIUM CHLORIDE 250 ML IV ONE (11:01)
[2024-08-05 11:07] LABS: CO2 25 mmol/L (21-32); GLUCOSE,RANDOM 104 mg/dL (74-106)
[2024-08-05 11:10] LABS: CREATININE 0.6 mg/dL (0.55-1.3); SGOT/AST 16 U/L (15-37); SGPT/ALT 24 U/L (13-61)
[2024-08-05 11:12] LABS: TOT PROT 6.3 g/dl (6.4-8.2)
[2024-08-05 11:13] LABS: ALK PHOS 60 U/L (45-117)
[2024-08-05] MEDS: PALONOSETRON HCL 0.25 MG/5 ML VIAL IVPUSH ONE (12:37)
[2024-08-05] MEDS: DEXAMETHASONE INJECTION 10 MG in SODIUM CHLORIDE 50 ML IVPB ONE (12:38)
[2024-08-05] MEDS: SODIUM CHLORIDE IVPB ONE (13:01)
[2024-08-05] MEDS: BEVACIZUMAB AWWB IVPB ONE (13:01)
[2024-08-05] MEDS: ATROPINE SO4 0.4 MG/1 ML VIAL IVPUSH ONE (13:36)
[2024-08-05] MEDS: WATER IVPB ONE (13:37)
[2024-08-05] MEDS: IRINOTECAN HCL 360 MG in DEXTROSE 5%-WATER - 500 ML IVPB ONE (13:37)
[2024-08-05] MEDS: LEUCOVORIN IVPB ONE (13:37)
[2024-08-05] MEDS: DEXTROSE 5% IVPB ONE (13:37)
[2024-08-05] MEDS: FLUOROURACIL CP ONE (15:48)
[2024-08-05] MEDS: SODIUM CHLORIDE CP ONE (15:48)
[2024-08-05 17:46] VITALS: RESP 20; TEMP 97.6
[2024-08-05 17:52] VITALS: BP 144/75; PULSE 47
[2024-08-05] MEDS ORDERED: PORTA CATH FLUSH 10 ML IVPUSH PRN (17:52)
== END 2024-08-05 16:05 | disposition home or self-care (01) ==
LOC: JONCCHEMO 10:03 → J7W 10:07 → JONCCHEMO 16:05
PROVIDERS: ATTEND Internal Medicine Hematology & Oncology
DX: Z51.11 Encounter for antineoplastic chemotherapy (principal); C20 Malignant neoplasm of rectum; C78.7 Secondary malignant neoplasm of liver and intrahepatic bile duct
CPT/HCPCS: 36415; 80048; 80076; 83735; 84156; 85025; 96368; 96375; 96413; 96417; G0498; J1100; J9206; Q5107

== ENCOUNTER 2024-09-09 11:16 | Day surgery (SDC) | payer BC ==
[2024-09-09 12:08] LABS: ABSOLUTE IMMATURE GRANULOCYTES 0.01 x10^3/uL (0.0-0.031); BASOPHILS # 0.04 x10^3/uL (0.01-0.08); EOSINOPHIL % 5.1 % (0.8-7.0); EOSINOPHILS # 0.25 x10^3/uL (0.04-0.54); MCHC 32.8 g/dl (32.3-36.5); MEAN CELL VOLUME 93.0 fl (79.0-92.2); MEAN PLT VOLUME 9.3 fl (9.4-12.4); MONOCYTE # 1.19 x10^3/uL (0.30-0.82); MONOCYTE % 24.3 % (5.3-12.2); RDW 16.1 % (12.2-16.4)
[2024-09-09] MEDS: SODIUM CHLORIDE 250 ML IV ONE (13:06)
[2024-09-09 13:08] LABS: CO2 26.0 mmol/L (21-32); GLUCOSE,RANDOM 106.0 mg/dL (74-106)
[2024-09-09 13:11] LABS: CREATININE 0.6 mg/dL (0.55-1.3); SGOT/AST 17.0 U/L (15-37); SGPT/ALT 43.0 U/L (13-61)
[2024-09-09 13:13] LABS: TOT PROT 6.6 g/dl (6.4-8.2)
[2024-09-09 13:14] LABS: ALK PHOS 87.0 U/L (45-117)
[2024-09-09] MEDS: DEXAMETHASONE INJECTION 10 MG in SODIUM CHLORIDE 50 ML IVPB ONE (13:24)
[2024-09-09] MEDS: PALONOSETRON HCL 0.25 MG/5 ML VIAL IVPUSH ONE (13:45)
[2024-09-09] MEDS: SODIUM CHLORIDE IVPB ONE (13:50)
[2024-09-09] MEDS: BEVACIZUMAB AWWB IVPB ONE (13:50)
[2024-09-09] MEDS: ATROPINE SO4 0.4 MG/1 ML VIAL IVPUSH ONE (14:28)
[2024-09-09] MEDS: IRINOTECAN HCL IVPB ONE (14:31)
[2024-09-09] MEDS: LEUCOVORIN IVPB ONE (14:31)
[2024-09-09] MEDS: DEXTROSE 5% IVPB ONE ×2 (14:31)
[2024-09-09] MEDS: WATER IVPB ONE ×2 (14:31)
[2024-09-09] MEDS: SODIUM CHLORIDE CP ONE (16:45)
[2024-09-09] MEDS: FLUOROURACIL CP ONE (16:45)
[2024-09-09 17:27] VITALS: TEMP 98.2
[2024-09-09 17:41] VITALS: BP 148/60; PULSE 54; RESP 18
[2024-09-09] MEDS ORDERED: PORTA CATH FLUSH 10 ML IVPUSH PRN (17:41)
== END 2024-09-09 17:00 | disposition home or self-care (01) ==
LOC: JONCCHEMO 11:16
PROVIDERS: ATTEND Internal Medicine Hematology & Oncology
DX: Z51.11 Encounter for antineoplastic chemotherapy (principal); C20 Malignant neoplasm of rectum
CPT/HCPCS: 36415; 74019-TC-FY; 80048; 80076; 83735; 84156; 85025; 96368; 96375; 96413; 96415; 96417; G0498; J1100; J9206; Q5107

== ENCOUNTER 2024-10-02 15:08 | Day surgery (SDC) | payer OTHER ==
[2024-10-02 16:26] VITALS: BP 118/83; PULSE 114; RESP 20; TEMP 97.9
[2024-10-02] MEDS: PORTA CATH FLUSH 10 ML IVPUSH PRN (16:27)
== END 2024-10-02 15:45 | disposition home or self-care (01) ==
LOC: JONCCHEMO 15:08 → J7W 15:10 → JONCCHEMO 15:45
PROVIDERS: ATTEND Internal Medicine Hematology & Oncology
DX: Z53.8 Procedure and treatment not carried out for other reasons (principal)

== ENCOUNTER 2024-10-02 15:46 | Emergency (ER) | payer OTHER ==
[2024-10-02 15:53] VITALS: RESP 20; TEMP 97.5; BMI 26.2
[2024-10-02 17:41] LABS: ABSOLUTE IMMATURE GRANULOCYTES 0.05 x10^3/uL (0.0-0.031); BASOPHILS # 0.02 x10^3/uL (0.01-0.08); EOSINOPHIL % 0.4 % (0.8-7.0); EOSINOPHILS # 0.04 x10^3/uL (0.04-0.54); MCHC 32.3 g/dl (32.3-36.5); MEAN CELL VOLUME 92.5 fl (79.0-92.2); MEAN PLT VOLUME 8.7 fl (9.4-12.4); MONOCYTE # 0.39 x10^3/uL (0.30-0.82); MONOCYTE % 3.8 % (5.3-12.2); RDW 16.9 % (12.2-16.4)
[2024-10-02 17:50] VITALS: BP 85/73; PULSE 112
[2024-10-02 18:24] LABS: HCV DIAGNOSTIC IN-HOUSE W/RFLX NON-REACTIVE (NONREACTIVE); HIV INTERPRETATION NEGATIVE (NEGATIVE)
[2024-10-02 18:47] LABS: GLUCOSE,RANDOM 106.0 mg/dL (74-106)
[2024-10-02 18:49] LABS: CO2 25.0 mmol/L (21-32)
[2024-10-02 18:53] LABS: CREATININE 0.6 mg/dL (0.55-1.3)
[2024-10-02] MEDS ORDERED: METOPROLOL TARTRATE 25 MG TABLET (FP) ONE (20:00)
[2024-10-02] MEDS: METOPROLOL TARTRATE 25 MG TABLET (FP) PO ONE (20:03)
[2024-10-02] MEDS: METOPROLOL TARTRATE 5 MG/5 ML VIAL IVPUSH ONE (20:03)
== END 2024-10-02 20:25 | disposition left against medical advice (07) ==
LOC: JER 15:46
DX: R00.0 Tachycardia, unspecified (principal)
CPT/HCPCS: 36415; 80048; 83735; 84484; 85025; 86803; 87389; 93005; 93010